=== PATIENT | female | born 1945 | race Caucasian/White ===

== ENCOUNTER → 2017-02-24 | Outpatient (CLI) | payer MEDICARE, MEDICAID ==
[~2017-02-24] MED LIST: AMBIEN10 MG PO; ASPIRIN325 MG PO; AUGMENTIN 875 M1 TA1 PO; Avapro300 MG PO; BENTYL10 MG PO; BENTYL20 MG PO; CALCIUM + D 5001 TAB PO; CARDIZEM CD240 MG PO; CIPRO250 MG PO; CLINDAMYCIN150 MG PO; CYCLOBENZAPRINE5 M3 PO; DIOVAN320 MG PO; ELIQUIS5 M1 PO; EVISTA60 MG PO; IMODIUM2 MG PO; LASIX40 MG PO; LEVAQUIN750 M1 PO; LOPID600 MG PO; MACROBID100 M1 PO; MOBIC7.5 MG PO; MULTI-VITAMINS1 TAB PO; PREVACID30 M1 PO; PRILOSEC20 M1 PO; SINGULAIR10 MG PO; SINGULAIR5 MG PO; TENORMIN100 MG PO; TESSALON PERLE100 MG PO; VITAMIN D2400 IU PO; VITAMIN D50000 IU PO; XANAX0.5 MG PO
== END ==
LOC: MRI 12:39
DX: M19.011 Primary osteoarthritis, right shoulder (principal); M75.81 Other shoulder lesions, right shoulder; M47.896 Other spondylosis, lumbar region; M51.27 Other intervertebral disc displacement, lumbosacral region; M48.07 Spinal stenosis, lumbosacral region; M25.562 Pain in left knee

== ENCOUNTER 2017-12-24 20:42 | Inpatient (IN) | payer MEDICARE, MEDICAID ==
[~2017-12-24] VITALS: Ht 157.5 cm; Wt 83.2 kg
--- NOTE | ~2017-12-24 | PR ---
[place], [place] PROGRESS NOTE NAME: FELIZ MCMULLEN I UNIT #: [id number] ROOM: 402 DOCTOR: YOGI HEWITT MD BIRTHDATE: [birth year] DOS: 12/26/2017 SUBJECTIVE: The patient was seen at her bedside today 12/26/2017 for followup of atrial fibrillation and diastolic heart failure. She presented to the hospital on this occasion with pedal edema. She was more dyspneic as well. In the hospital, she noted that her legs were more swollen, but were improving with diuresis. She had no chest pain. She did have an echocardiogram today, which showed normal left ventricular size with normal wall motion. There was mild concentric left ventricular hypertrophy. The left ventricular systolic function was normal with an ejection fraction of 60-65%. Diastole could not be fully assessed. The right ventricular size and function were normal. She had no apparent pulmonary hypertension and no significant abnormality of valve function. The left atrium was severely dilated consistent with probable left ventricular diastolic relaxation abnormalities. PHYSICAL EXAMINATION: VITAL SIGNS: Today, her pulse is 92 and irregularly irregular. Blood pressure is 95/65. She is afebrile. She weighs 83.6 kg and has a body mass index of 33.7. NECK: Supple. She did have jugular distention with mild hepatojugular reflux. Carotids are full. LUNGS: Respirations were unlabored. Her chest had decreased breath sounds at the bases, but otherwise clear. HEART: Had an irregularly irregular rhythm. There were no murmurs or gallops. ABDOMEN: Benign. EXTREMITIES: Showed 1+ edema bilaterally, but she does have "heavy legs." IMPRESSION: 1. Atrial fibrillation. 2. Chronic diastolic congestive heart failure with acute exacerbation. 3. Acute renal insufficiency, improving. 4. Essential hypertension. 5. Hyperlipidemia. PLAN: We will continue intravenous loop diuretics. We may need to discontinue angiotensin receptor blockers (losartan) if renal functions remain an issue. I would continue to control her heart rate with diltiazem orally and continue her on apixaban for stroke prophylaxis. We will continue to monitor her in the hospital with her other physicians. I thank the hospitalist physicians for asking our advice regarding her care. [place], [place] PROGRESS NOTE NAME: FELIZ MCMULLEN I UNIT #: [id number] ROOM: 402 DOCTOR: YOGI HEWITT MD BIRTHDATE: [birth year] YOGI HEWITT MD CM:[facility] 1949 18 YOGI HEWITT MD 12/26/17 2018 interface
[2017-12-24 20:43] VITALS: BP 130/78
[2017-12-24 21:15] VITALS: BP 121/78
[2017-12-24 21:22] LABS: BASO # 0.1 10*3/uL (0.0-0.1); EOS # 0.1 10*3/uL (0.0-0.4); EOS % 1.7 % (1.0-4.0); HEMOGLOBIN 15.3 g/dl (12.0-16.0); LYMPH # 2.9 10*3/uL (1.3-4.4); LYMPH % 37.9 % (27.0-41.0); MEAN CELL VOLUME 97.4 fl (81.0-99.0); MEAN CORPUSCULAR HGB 33.1 pg (27.0-31.0); MEAN PLATELET VOLUME 10.6 fl (9.6-12.3); MONO # 0.8 10*3/uL (0.1-1.0); MONO % 10.4 % (3.0-9.0); NEUT # 3.7 10*3/uL (2.3-7.9); NEUT % 48.2 % (47.0-73.0); PLATELET COUNT AUTOMATED 197 10*3/uL (130-400); RED BLOOD COUNT 4.62 10*6/uL (4.10-5.10); RED CELL DISTRI WIDTH 13.6 % (0-14.5); WHITE BLOOD COUNT 7.7 10*3/uL (4.8-10.8)
[2017-12-24 21:23] LABS: BILIRUBIN NEGATIVE (NEGATIVE); BLOOD NEGATIVE (NEGATIVE); CLARITY CLEAR (CLEAR); COLOR YELLOW (YELLOW); GLUCOSE NEGATIVE (NEGATIVE); KETONE NEGATIVE (NEGATIVE); LEUKO ESTERASE 1+ (NEGATIVE); NITRITE NEGATIVE (NEGATIVE); PH 5.5 (5.0-9.0); UROBILINOGEN 0.2 E.U./dl (0.2-1.0)
[2017-12-24 21:32] LABS: INTERNATIONAL NORM RATIO 1.1 (2.0-3.5)
[2017-12-24 21:32] LABS: BACTERIA 2+; RBC 0-2 rbc/hpf (0-2)
[2017-12-24 21:39] LABS: ALBUMIN 3.8 gm/dl (3.1-4.5); ALKALINE PHOSPHATASE 112 U/L (45-117); BUN 49 mg/dl (7-24); CHLORIDE 101 mmol/L (98-107); CREATININE 1.43 mg/dL (0.55-1.02); POTASSIUM 3.3 mmol/L (3.5-5.1); SGOT/AST 22 IU/L (3-35); SGPT/ALT 14 U/L (12-78); SODIUM 136 mmol/L (136-145); TOTAL PROTEIN 8.2 gm/dL (6.4-8.2)
[2017-12-24 21:42] LABS: TROPONIN I < 0.015 ng/ml (<0.045)
[2017-12-24 21:58] VITALS: BP 110/73
[2017-12-24 22:25] VITALS: BP 115/68
[2017-12-25] MEDS ORDERED: BUMETANIDE2 MG PO (01:44)
[2017-12-25 08:00] VITALS: BP 101/56
[2017-12-25 08:13] LABS: BASO # 0.1 10*3/uL (0.0-0.1); EOS # 0.1 10*3/uL (0.0-0.4); EOS % 1.8 % (1.0-4.0); HEMATOCRIT 45.2 % (37.0-47.0); HEMOGLOBIN 14.7 g/dl (12.0-16.0); LYMPH # 2.3 10*3/uL (1.3-4.4); MEAN CELL VOLUME 99.8 fl (81.0-99.0); MEAN CORPUSCULAR HGB 32.5 pg (27.0-31.0); MEAN CORPUSCULAR HGB CONC 32.5 g/dl (33.0-37.0); MEAN PLATELET VOLUME 10.9 fl (9.6-12.3); MONO # 0.8 10*3/uL (0.1-1.0); MONO % 10.6 % (3.0-9.0); NEUT % 55.1 % (47.0-73.0); PLATELET COUNT AUTOMATED 181 10*3/uL (130-400); RED BLOOD COUNT 4.53 10*6/uL (4.10-5.10); RED CELL DISTRI WIDTH 13.5 % (0-14.5); WHITE BLOOD COUNT 7.3 10*3/uL (4.8-10.8)
[2017-12-25 08:43] LABS: CREATININE 1.23 mg/dL (0.55-1.02); PHOSPHOROUS 2.5 mg/dL (2.5-4.9); POTASSIUM 3.5 mmol/L (3.5-5.1)
[2017-12-25 08:53] LABS: THYROID STIM HORMONE (HS) 1.51 uIU/ml (0.358-4.75)
[2017-12-25 12:00] VITALS: BP 135/83
[2017-12-25 16:00] VITALS: BP 100/58
[2017-12-25 20:00] VITALS: BP 90/58
[2017-12-26] VITALS: BP 96/54
[2017-12-26 07:27] LABS: BASO # 0.1 10*3/uL (0.0-0.1); BASO % 0.9 % (0.0-1.0); EOS # 0.2 10*3/uL (0.0-0.4); EOS % 2.6 % (1.0-4.0); HEMATOCRIT 38.8 % (37.0-47.0); HEMOGLOBIN 12.8 g/dl (12.0-16.0); LYMPH # 2.5 10*3/uL (1.3-4.4); LYMPH % 38.3 % (27.0-41.0); MEAN CELL VOLUME 98.2 fl (81.0-99.0); MEAN CORPUSCULAR HGB 32.4 pg (27.0-31.0); MEAN PLATELET VOLUME 10.8 fl (9.6-12.3); MONO # 0.7 10*3/uL (0.1-1.0); MONO % 10.6 % (3.0-9.0); NEUT % 47.3 % (47.0-73.0); PLATELET COUNT AUTOMATED 149 10*3/uL (130-400); RED BLOOD COUNT 3.95 10*6/uL (4.10-5.10); RED CELL DISTRI WIDTH 13.7 % (0-14.5); WHITE BLOOD COUNT 6.4 10*3/uL (4.8-10.8)
[2017-12-26 07:54] LABS: CREATININE 1.19 mg/dL (0.55-1.02); POTASSIUM 3.4 mmol/L (3.5-5.1)
[2017-12-26 08:00] VITALS: BP 105/63
[2017-12-26 12:00] VITALS: BP 107/68
[2017-12-26 16:00] VITALS: BP 95/65
[2017-12-26 20:00] VITALS: BP 98/62
[2017-12-27] VITALS: BP 97/61
[2017-12-27 06:33] LABS: CREATININE 1.15 mg/dL (0.55-1.02); POTASSIUM 3.8 mmol/L (3.5-5.1)
[2017-12-27 08:00] VITALS: BP 101/61
[2017-12-27 12:00] VITALS: BP 101/54
[2018-01-02] MEDS ORDERED: COREG12.5 M1 PO (18:10)
[2018-01-02] MEDS ORDERED: FISH OIL 1,0001 EAC1 PO (18:11)
[2018-01-02] MEDS ORDERED: TENORMIN100 MG PO (18:44)
== END 2017-12-27 16:00 | disposition home or self-care (01) | DRG 291 ==
LOC: ED 20:42 → 4E 21:56 → EDHOLD 21:56 → 4E 22:05
PROVIDERS: Family Medicine; Internal Medicine; Nurse Practitioner Family; Student in an Organized Health Care Education/Training Program
DX: I13.0 Hypertensive heart and chronic kidney disease with heart failure and stage 1 through stage 4 chronic kidney disease, or unspecified chronic kidney disease (principal); I50.33 Acute on chronic diastolic (congestive) heart failure; N17.0 Acute kidney failure with tubular necrosis; I48.2 Chronic atrial fibrillation; I08.3 Combined rheumatic disorders of mitral, aortic and tricuspid valves; N18.3 Chronic kidney disease, stage 3 (moderate); R73.9 Hyperglycemia, unspecified; E78.5 Hyperlipidemia, unspecified; E87.6 Hypokalemia; M19.90 Unspecified osteoarthritis, unspecified site; K57.90 Diverticulosis of intestine, part unspecified, without perforation or abscess without bleeding; K21.9 Gastro-esophageal reflux disease without esophagitis; F41.9 Anxiety disorder, unspecified; Z98.49 Cataract extraction status, unspecified eye; Z90.49 Acquired absence of other specified parts of digestive tract; Z90.710 Acquired absence of both cervix and uterus; Z82.49 Family history of ischemic heart disease and other diseases of the circulatory system; Z82.3 Family history of stroke; Z88.8 Allergy status to other drugs, medicaments and biological substances; Z91.041 Radiographic dye allergy status; Z79.899 Other long term (current) drug therapy

== ENCOUNTER 2018-01-16 13:12 | Emergency (ER) | payer MEDICARE, MEDICAID ==
[~2018-01-16] VITALS: Ht 162.5 cm; Wt 83.5 kg
[~2018-01-16 13:12] MED LIST changes: +ALPRAZOLAM0.5 M3 PO; +AVAPRO150 M1 PO; +BUMETANIDE1 MG PO; +BUMETANIDE2 MG PO; +COREG12.5 M1 PO; +FISH OIL 1,0001 EAC1 PO; +SINGULAIR10 M1 PO; +TOPROL XL50 M1 PO; +VITAMIN D50000 UNIT PO
[2018-01-16 13:37] LABS: BASO # 0.1 10*3/uL (0.0-0.1); BASO % 0.7 % (0.0-1.0); EOS # 0.1 10*3/uL (0.0-0.4); EOS % 1.6 % (1.0-4.0); HEMATOCRIT 38.4 % (37.0-47.0); HEMOGLOBIN 13.5 g/dl (12.0-16.0); LYMPH # 2.3 10*3/uL (1.3-4.4); LYMPH % 33.1 % (27.0-41.0); MEAN CELL VOLUME 95.3 fl (81.0-99.0); MEAN CORPUSCULAR HGB 33.5 pg (27.0-31.0); MEAN CORPUSCULAR HGB CONC 35.2 g/dl (33.0-37.0); MEAN PLATELET VOLUME 10.2 fl (9.6-12.3); MONO # 0.6 10*3/uL (0.1-1.0); MONO % 8.3 % (3.0-9.0); NEUT # 3.9 10*3/uL (2.3-7.9); NEUT % 55.4 % (47.0-73.0); PLATELET COUNT AUTOMATED 195 10*3/uL (130-400); RED BLOOD COUNT 4.03 10*6/uL (4.10-5.10); RED CELL DISTRI WIDTH 13.3 % (0-14.5)
[2018-01-16 13:45] LABS: ACT PARTIAL THROMBO TIME 35.1 SECONDS (20.8-31.5); INTERNATIONAL NORM RATIO 1.2 (2.0-3.5)
[2018-01-16 13:50] LABS: ALBUMIN 3.7 gm/dl (3.1-4.5); BUN 16 mg/dl (7-24); CHLORIDE 97 mmol/L (98-107); SGOT/AST 31 IU/L (3-35); SGPT/ALT 21 U/L (12-78); SODIUM 130 mmol/L (136-145)
[2018-01-16 13:54] LABS: ALKALINE PHOSPHATASE 108 U/L (45-117); TOTAL PROTEIN 7.4 gm/dL (6.4-8.2)
[2018-01-16 13:55] LABS: TROPONIN I < 0.015 ng/ml (<0.045)
[2018-01-16 15:15] VITALS: BP 112/60
[2018-01-16 15:32] LABS: BILIRUBIN NEGATIVE (NEGATIVE); BLOOD NEGATIVE (NEGATIVE); CLARITY CLEAR (CLEAR); COLOR YELLOW (YELLOW); GLUCOSE NEGATIVE (NEGATIVE); KETONE NEGATIVE (NEGATIVE); LEUKO ESTERASE NEGATIVE (NEGATIVE); NITRITE NEGATIVE (NEGATIVE); PH 5.5 (5.0-9.0); SPECIFIC GRAVITY <= 1.005 (1.005-1.030); UROBILINOGEN 0.2 E.U./dl (0.2-1.0)
[2018-01-16 15:38] LABS: BACTERIA 1+; EPITHELIAL CELLS 0-2; RBC 0-2 rbc/hpf (0-2); WBC 0-2 wbc/hpf (0-5)
== END 2018-01-16 15:34 | disposition home or self-care (01) ==
LOC: ED 13:12
PROVIDERS: Emergency Medicine
DX: E87.1 Hypo-osmolality and hyponatremia (principal); R60.0 Localized edema; I13.0 Hypertensive heart and chronic kidney disease with heart failure and stage 1 through stage 4 chronic kidney disease, or unspecified chronic kidney disease; N18.3 Chronic kidney disease, stage 3 (moderate); I50.9 Heart failure, unspecified; E78.5 Hyperlipidemia, unspecified; M19.90 Unspecified osteoarthritis, unspecified site; I48.91 Unspecified atrial fibrillation; Z91.041 Radiographic dye allergy status; Z88.8 Allergy status to other drugs, medicaments and biological substances; Z79.899 Other long term (current) drug therapy

== ENCOUNTER 2018-01-18 13:35 | Inpatient (IN) | payer MEDICARE, MEDICAID ==
[2018-01-18] VITALS (7 sets, daily range): BP systolic 99–152; BP diastolic 53–82
[~2018-01-18] VITALS: Ht 162.5 cm; Wt 80.8 kg
[2018-01-18 14:06] LABS: BASO # 0.1 10*3/uL (0.0-0.1); BASO % 0.6 % (0.0-1.0); EOS # 0.1 10*3/uL (0.0-0.4); EOS % 1.2 % (1.0-4.0); HEMATOCRIT 38.5 % (37.0-47.0); HEMOGLOBIN 12.9 g/dl (12.0-16.0); LYMPH # 2.3 10*3/uL (1.3-4.4); LYMPH % 27.8 % (27.0-41.0); MEAN CELL VOLUME 99.5 fl (81.0-99.0); MEAN CORPUSCULAR HGB 33.3 pg (27.0-31.0); MEAN CORPUSCULAR HGB CONC 33.5 g/dl (33.0-37.0); MEAN PLATELET VOLUME 10.2 fl (9.6-12.3); MONO # 0.7 10*3/uL (0.1-1.0); MONO % 9.1 % (3.0-9.0); NEUT % 60.8 % (47.0-73.0); PLATELET COUNT AUTOMATED 178 10*3/uL (130-400); RED BLOOD COUNT 3.87 10*6/uL (4.10-5.10); RED CELL DISTRI WIDTH 14.1 % (0-14.5); WHITE BLOOD COUNT 8.2 10*3/uL (4.8-10.8)
[2018-01-18 14:28] LABS: BUN 17 mg/dl (7-24); CHLORIDE 103 mmol/L (98-107); CREATININE 1.04 mg/dL (0.55-1.02); POTASSIUM 3.8 mmol/L (3.5-5.1); SODIUM 137 mmol/L (136-145); TROPONIN I < 0.015 ng/ml (<0.045)
[2018-01-18 15:32] LABS: BILIRUBIN NEGATIVE (NEGATIVE); BLOOD NEGATIVE (NEGATIVE); CLARITY CLEAR (CLEAR); COLOR YELLOW (YELLOW); GLUCOSE NEGATIVE (NEGATIVE); KETONE NEGATIVE (NEGATIVE); LEUKO ESTERASE NEGATIVE (NEGATIVE); NITRITE NEGATIVE (NEGATIVE); PH 5.5 (5.0-9.0); SPECIFIC GRAVITY <= 1.005 (1.005-1.030); UROBILINOGEN 0.2 E.U./dl (0.2-1.0)
[2018-01-18] MEDS ORDERED: BUMETANIDE2 MG PO (15:36)
[2018-01-18] MEDS ORDERED: TENORMIN100 MG PO ×2 (15:37→18:06)
[2018-01-18] MEDS ORDERED: CARTIA XT240 MG PO ×2 (15:38→18:07)
[2018-01-18] MEDS ORDERED: VITAMIN D32000 UNIT PO (15:39)
[2018-01-18 15:40] LABS: BACTERIA TRACE; WBC 0-2 wbc/hpf (0-5)
[2018-01-18] MEDS ORDERED: CARVEDILOL12.5 MG PO (15:40)
[2018-01-18] MEDS ORDERED: FISH OIL CONC1000 M1 PO (15:41)
[2018-01-19] VITALS: BP 100/53; BP 109/67
[2018-01-19 06:57] LABS: BASO # 0.1 10*3/uL (0.0-0.1); BASO % 0.8 % (0.0-1.0); EOS # 0.2 10*3/uL (0.0-0.4); EOS % 2.8 % (1.0-4.0); HEMATOCRIT 38.5 % (37.0-47.0); HEMOGLOBIN 12.9 g/dl (12.0-16.0); LYMPH # 1.7 10*3/uL (1.3-4.4); LYMPH % 27.7 % (27.0-41.0); MEAN CELL VOLUME 99.5 fl (81.0-99.0); MEAN CORPUSCULAR HGB 33.3 pg (27.0-31.0); MEAN CORPUSCULAR HGB CONC 33.5 g/dl (33.0-37.0); MEAN PLATELET VOLUME 10.6 fl (9.6-12.3); MONO # 0.7 10*3/uL (0.1-1.0); MONO % 10.5 % (3.0-9.0); NEUT # 3.6 10*3/uL (2.3-7.9); NEUT % 57.7 % (47.0-73.0); PLATELET COUNT AUTOMATED 146 10*3/uL (130-400); RED BLOOD COUNT 3.87 10*6/uL (4.10-5.10); RED CELL DISTRI WIDTH 14.3 % (0-14.5); WHITE BLOOD COUNT 6.2 10*3/uL (4.8-10.8)
[2018-01-19] MEDS ORDERED: LOPID600 M1 PO (07:54)
[2018-01-19] MEDS ORDERED: AVAPRO150 M1 PO (07:55)
[2018-01-19] MEDS ORDERED: BUMETANIDE1 MG PO (07:55)
[2018-01-19 07:59] LABS: ALBUMIN 3.3 gm/dl (3.1-4.5); BUN 14 mg/dl (7-24); CHLORIDE 103 mmol/L (98-107); CHOLESTEROL 127 mg/dL (<200); CREATININE 0.91 mg/dL (0.55-1.02); PHOSPHOROUS 3.3 mg/dL (2.5-4.9); POTASSIUM 3.3 mmol/L (3.5-5.1); SGOT/AST 26 IU/L (3-35); SGPT/ALT 17 U/L (12-78); SODIUM 140 mmol/L (136-145); TOTAL PROTEIN 6.8 gm/dL (6.4-8.2); TRIGLYCERIDES 87 mg/dl (<150); VLDL CHOLESTEROL 17 mg/dL (6-40)
[2018-01-19 08:00] VITALS: BP 115/68
[2018-01-19 08:04] LABS: VITAMIN D, 25-HYDROXY 54.7 ng/mL (30-100)
[2018-01-19 08:06] LABS: ALKALINE PHOSPHATASE 89 U/L (45-117); HDL CHOLESTEROL 42 mg/dl (40-60); LDL CHOLESTEROL 68 mg/dL (9-159)
[2018-01-19 12:00] VITALS: BP 91/53
[2018-01-19 16:00] VITALS: BP 104/59
[2018-01-19 20:00] VITALS: BP 104/58
[2018-01-20 00:36] VITALS: BP 108/58
[2018-01-20 06:55] LABS: BUN 15 mg/dl (7-24); CHLORIDE 104 mmol/L (98-107); CREATININE 0.99 mg/dL (0.55-1.02); POTASSIUM 3.9 mmol/L (3.5-5.1); SODIUM 140 mmol/L (136-145)
[2018-01-20 08:00] VITALS: BP 115/71
[2018-01-20] MEDS ORDERED: MUCINEX ER600 MG PO (11:03)
[2018-01-20] MEDS ORDERED: OMNICEF300 MG PO (11:03)
[2018-01-20] MEDS ORDERED: BUMETANIDE1 MG PO (11:07)
[2018-01-20 12:00] VITALS: BP 119/73
== END 2018-01-20 14:10 | disposition home or self-care (01) | DRG 291 ==
LOC: ED 13:35 → 4E 15:01 → EDHOLD 15:01 → 4E 15:08
PROVIDERS: Emergency Medicine; Internal Medicine
DX: I13.0 Hypertensive heart and chronic kidney disease with heart failure and stage 1 through stage 4 chronic kidney disease, or unspecified chronic kidney disease (principal); I50.31 Acute diastolic (congestive) heart failure; N17.9 Acute kidney failure, unspecified; I95.9 Hypotension, unspecified; L03.115 Cellulitis of right lower limb; D68.59 Other primary thrombophilia; I48.91 Unspecified atrial fibrillation; N18.3 Chronic kidney disease, stage 3 (moderate); I48.92 Unspecified atrial flutter; L03.116 Cellulitis of left lower limb; E87.6 Hypokalemia; K57.90 Diverticulosis of intestine, part unspecified, without perforation or abscess without bleeding; M19.90 Unspecified osteoarthritis, unspecified site; I87.2 Venous insufficiency (chronic) (peripheral); R79.89 Other specified abnormal findings of blood chemistry; E78.5 Hyperlipidemia, unspecified; Z87.01 Personal history of pneumonia (recurrent); Z90.49 Acquired absence of other specified parts of digestive tract; Z98.49 Cataract extraction status, unspecified eye; Z82.3 Family history of stroke; Z82.49 Family history of ischemic heart disease and other diseases of the circulatory system; Z88.8 Allergy status to other drugs, medicaments and biological substances; Z91.041 Radiographic dye allergy status; Z79.899 Other long term (current) drug therapy; Z87.440 Personal history of urinary (tract) infections

== ENCOUNTER 2018-06-27 14:44 | Emergency (ER) | payer OTHER ==
[~2018-06-27] VITALS: Wt 81.2 kg
[~2018-06-27 14:44] MED LIST changes: +CARTIA XT240 MG PO; +CARVEDILOL12.5 MG PO; +FISH OIL CONC1000 M1 PO; +LOPID600 M1 PO; +MUCINEX ER600 MG PO; +OMNICEF300 MG PO; +VITAMIN D32000 UNIT PO
[2018-06-27 14:50] VITALS: BP 118/68
[2018-06-27 15:34] LABS: BASO % 0.7 % (0.0-1.0); EOS # 0.2 10*3/uL (0.0-0.4); EOS % 2.7 % (1.0-4.0); HEMOGLOBIN 12.6 g/dl (12.0-16.0); LYMPH # 1.5 10*3/uL (1.3-4.4); LYMPH % 26.3 % (27.0-41.0); MEAN CELL VOLUME 97.4 fl (81.0-99.0); MEAN CORPUSCULAR HGB 32.3 pg (27.0-31.0); MEAN CORPUSCULAR HGB CONC 33.2 g/dl (33.0-37.0); MEAN PLATELET VOLUME 10.6 fl (9.6-12.3); MONO # 0.6 10*3/uL (0.1-1.0); MONO % 10.6 % (3.0-9.0); NEUT # 3.3 10*3/uL (2.3-7.9); NEUT % 59.5 % (47.0-73.0); PLATELET COUNT AUTOMATED 128 10*3/uL (130-400); RED CELL DISTRI WIDTH 14.2 % (0-14.5); WHITE BLOOD COUNT 5.6 10*3/uL (4.8-10.8)
[2018-06-27 15:44] LABS: ACT PARTIAL THROMBO TIME 33.9 SECONDS (20.8-31.5); INTERNATIONAL NORM RATIO 1.2 (2.0-3.5)
[2018-06-27 15:48] LABS: BILIRUBIN NEGATIVE (NEGATIVE); BLOOD TRACE-INTACT (NEGATIVE); CLARITY CLEAR (CLEAR); COLOR YELLOW (YELLOW); GLUCOSE NEGATIVE (NEGATIVE); KETONE NEGATIVE (NEGATIVE); LEUKO ESTERASE 2+ (NEGATIVE); NITRITE NEGATIVE (NEGATIVE); SPECIFIC GRAVITY <= 1.005 (1.005-1.030); UROBILINOGEN 0.2 E.U./dl (0.2-1.0)
[2018-06-27 15:51] LABS: ALBUMIN 3.5 gm/dl (3.1-4.5); CREATININE 1.36 mg/dL (0.55-1.02); POTASSIUM 3.7 mmol/L (3.5-5.1)
[2018-06-27 15:59] LABS: BACTERIA 1+; WBC 21-30 wbc/hpf (0-5)
[2018-06-27] MEDS ORDERED: MACROBID100 M1 PO (16:07)
[2018-06-27] MEDS ORDERED: ANUSOL-HC25 MG R (16:07)
== END 2018-06-27 16:28 | disposition home or self-care (01) ==
LOC: ED 14:44
PROVIDERS: Nurse Practitioner Family
DX: K64.4 Residual hemorrhoidal skin tags (principal); N39.0 Urinary tract infection, site not specified; I48.91 Unspecified atrial fibrillation; I13.0 Hypertensive heart and chronic kidney disease with heart failure and stage 1 through stage 4 chronic kidney disease, or unspecified chronic kidney disease; N18.3 Chronic kidney disease, stage 3 (moderate); I50.9 Heart failure, unspecified; Z91.041 Radiographic dye allergy status; Z88.8 Allergy status to other drugs, medicaments and biological substances; Z79.1 Long term (current) use of non-steroidal anti-inflammatories (NSAID); Z79.899 Other long term (current) drug therapy; Z90.710 Acquired absence of both cervix and uterus

== ENCOUNTER → 2019-01-23 | Outpatient (CLI) | payer MEDICARE ==
[~2019-01-23] MED LIST changes: +ANUSOL-HC25 MG R; +CALCIUM + D3 E1 EACH PO; +COMPLETE OMEGA1 EACH PO; +COREG6.25 MG PO; +DIGOXIN250 MCG PO; +DOCUSATE SODIU100 M2 PO; +HYDROCODONE-AC1 EAC1 PO; +LOPRESSOR25 MG PO; +MELOXICAM15 MG PO; +METOPROLOL TART50 M1 PO; +PROTONIX40 MG PO; +SENNO8.6 MG PO; +TYLENOL325 M1 PO; +VISTARIL25 MG PO; +VITAMIN D32000 UNI1 PO; +ZOFRAN4 MG PO
== END | disposition home or self-care (01) ==
LOC: WOUNDCARE 01:38
DX: S81.801A Unspecified open wound, right lower leg, initial encounter (principal); I13.0 Hypertensive heart and chronic kidney disease with heart failure and stage 1 through stage 4 chronic kidney disease, or unspecified chronic kidney disease; N18.3 Chronic kidney disease, stage 3 (moderate); I50.9 Heart failure, unspecified; I73.9 Peripheral vascular disease, unspecified; I48.91 Unspecified atrial fibrillation; M79.661 Pain in right lower leg; E78.5 Hyperlipidemia, unspecified; M19.90 Unspecified osteoarthritis, unspecified site; Z90.49 Acquired absence of other specified parts of digestive tract; Z90.710 Acquired absence of both cervix and uterus; Z98.49 Cataract extraction status, unspecified eye; Z79.01 Long term (current) use of anticoagulants; X58.XXXD Exposure to other specified factors, subsequent encounter

== ENCOUNTER → 2019-02-06 | Outpatient (CLI) | payer MEDICARE | END | disposition home or self-care (01) | LOC: WOUNDCARE 02:37 | DX: S80.11XD Contusion of right lower leg, subsequent encounter (principal); D62 Acute posthemorrhagic anemia; I48.91 Unspecified atrial fibrillation; I13.0 Hypertensive heart and chronic kidney disease with heart failure and stage 1 through stage 4 chronic kidney disease, or unspecified chronic kidney disease; N18.3 Chronic kidney disease, stage 3 (moderate); I50.9 Heart failure, unspecified; E78.5 Hyperlipidemia, unspecified; M19.90 Unspecified osteoarthritis, unspecified site; W20.8XXD Other cause of strike by thrown, projected or falling object, subsequent encounter ==

== ENCOUNTER → 2019-02-20 | Outpatient (CLI) | payer MEDICARE | END | disposition home or self-care (01) | LOC: WOUNDCARE 00:18 | DX: S80.11XD Contusion of right lower leg, subsequent encounter (principal); L92.9 Granulomatous disorder of the skin and subcutaneous tissue, unspecified; D62 Acute posthemorrhagic anemia; I48.91 Unspecified atrial fibrillation; I13.0 Hypertensive heart and chronic kidney disease with heart failure and stage 1 through stage 4 chronic kidney disease, or unspecified chronic kidney disease; N18.3 Chronic kidney disease, stage 3 (moderate); I50.9 Heart failure, unspecified; E78.5 Hyperlipidemia, unspecified; M19.90 Unspecified osteoarthritis, unspecified site; W20.8XXD Other cause of strike by thrown, projected or falling object, subsequent encounter ==

== ENCOUNTER → 2020-01-09 | Outpatient (CLI) | payer MEDICARE ==
[2020-01-09 14:34] LABS: CREATININE 1.25 mg/dL (0.55-1.02); POTASSIUM 4.5 mmol/L (3.5-5.1)
[2020-01-09 14:41] LABS: ALBUMIN 3.8 gm/dl (3.1-4.5)
[2020-01-09 14:44] LABS: BASO # 0.1 10*3/uL (0.0-0.1); BASO % 0.8 % (0.0-1.0); EOS # 0.2 10*3/uL (0.0-0.4); EOS % 2.9 % (1.0-4.0); HEMATOCRIT 44.8 % (37.0-47.0); LYMPH # 2.4 10*3/uL (1.3-4.4); LYMPH % 38.1 % (27.0-41.0); MEAN CELL VOLUME 100.7 fl (81.0-99.0); MEAN CORPUSCULAR HGB 32.4 pg (27.0-31.0); MEAN CORPUSCULAR HGB CONC 32.1 g/dl (33.0-37.0); MEAN PLATELET VOLUME 11.8 fl (9.6-12.3); MONO # 0.5 10*3/uL (0.1-1.0); MONO % 7.4 % (3.0-9.0); NEUT # 3.1 10*3/uL (2.3-7.9); NEUT % 50.3 % (47.0-73.0); PLATELET COUNT AUTOMATED 165 10*3/uL (130-400); RED BLOOD COUNT 4.45 10*6/uL (4.10-5.10); RED CELL DISTRI WIDTH 13.6 % (0-14.5); WHITE BLOOD COUNT 6.2 10*3/uL (4.8-10.8)
[2020-01-09 16:20] LABS: URINE CREATININE RANDOM 61.7 mg/dL
[2020-01-09 16:27] LABS: BILIRUBIN NEGATIVE (NEGATIVE); BLOOD 2+ (NEGATIVE); CLARITY CLEAR (CLEAR); COLOR YELLOW (YELLOW); GLUCOSE NEGATIVE (NEGATIVE); KETONE NEGATIVE (NEGATIVE); LEUKO ESTERASE 1+ (NEGATIVE); NITRITE NEGATIVE (NEGATIVE); SPECIFIC GRAVITY 1.025 (1.005-1.030); UROBILINOGEN 0.2 E.U./dl (0.2-1.0)
== END | disposition home or self-care (01) ==
LOC: LAB 12:25 → US 12:30
PROVIDERS: Internal Medicine Nephrology
DX: N17.9 Acute kidney failure, unspecified (principal)

== ENCOUNTER 2020-02-04 14:12 | Inpatient (IN) | payer MEDICARE ==
[~2020-02-04] VITALS: Ht 160 cm; Wt 62.6 kg
[2020-02-04 14:43] VITALS: BP 126/58
[2020-02-04 16:03] LABS: BASO # 0.1 10*3/uL (0.0-0.1); BASO % 0.8 % (0.0-1.0); EOS # 0.2 10*3/uL (0.0-0.4); EOS % 2.3 % (1.0-4.0); HEMATOCRIT 41.9 % (37.0-47.0); LYMPH # 1.9 10*3/uL (1.3-4.4); LYMPH % 28.7 % (27.0-41.0); MEAN CELL VOLUME 100.5 fl (81.0-99.0); MEAN CORPUSCULAR HGB 32.9 pg (27.0-31.0); MEAN CORPUSCULAR HGB CONC 32.7 g/dl (33.0-37.0); MEAN PLATELET VOLUME 10.8 fl (9.6-12.3); MONO # 0.5 10*3/uL (0.1-1.0); MONO % 8.1 % (3.0-9.0); NEUT # 3.9 10*3/uL (2.3-7.9); NEUT % 59.8 % (47.0-73.0); PLATELET COUNT AUTOMATED 146 10*3/uL (130-400); RED BLOOD COUNT 4.17 10*6/uL (4.10-5.10); RED CELL DISTRI WIDTH 14.2 % (0-14.5); WHITE BLOOD COUNT 6.6 10*3/uL (4.8-10.8)
[2020-02-04 16:14] LABS: INTERNATIONAL NORM RATIO 1.2 (2.0-3.5)
[2020-02-04 16:20] VITALS: BP 129/75
[2020-02-04 16:20] LABS: ALBUMIN 3.5 gm/dl (3.1-4.5); ALKALINE PHOSPHATASE 98 U/L (45-117); BUN 19 mg/dl (7-24); CHLORIDE 109 mmol/L (98-107); CREATININE 0.89 mg/dL (0.55-1.02); LIPASE 174 U/L (73-393); POTASSIUM 4.5 mmol/L (3.5-5.1); SGOT/AST 20 IU/L (3-35); SGPT/ALT 14 U/L (12-78); SODIUM 139 mmol/L (136-145); TOTAL PROTEIN 7.6 gm/dL (6.4-8.2); TROPONIN I < 0.015 ng/ml (<0.045)
--- NOTE | 2020-02-04 16:20 | NUR ---
A 74, admitted to , under the services of JEIMY Montero DO with a diagnosis of CELLULITIS OF RIGHT LOWER EXTREMITY Chief complaint is LEG PAIN. Patient arrived via CART from ER. Monitor applied. Initial assessment completed. Vital signs taken and recorded. JEIMY MONTERO DO notified of admission to the unit. Orders received. See assessment for past medical history, medications and allergies. Patient and/or family oriented to unit. [facility] visitation policy reviewed. Clothing/patient valuable form completed. HELEN WILLIS
[2020-02-04 16:54] LABS: DIGOXIN 2.26 ng/ml (0.8-2.0)
--- NOTE | 2020-02-04 17:05 | NUR ---
CALLED [facility] FOR MED LIST
--- NOTE | 2020-02-04 17:23 | NUR ---
PT LEAVING THE FLOOR AT THIS TIME FOR ULTRA SOUND
[2020-02-04] MEDS ORDERED: FISH OIL 1,0001 EAC4 PO (17:30)
[2020-02-04] MEDS ORDERED: CEROVITE ADVAN1 EACH PO (17:32)
[2020-02-04] MEDS ORDERED: CLARITIN10 MG PO (17:39)
--- NOTE | 2020-02-04 17:42 | NUR ---
DR JOSHUA NOTIFIED OF UPDATED MED LIST
--- NOTE | 2020-02-04 17:42 | NUR ---
PT BACK ON FLOOR
--- NOTE | 2020-02-04 19:35 | NUR ---
PATIENT ASSESSMENT COMPLETED AT THIS TIME WITHOUT INCIDENT. PATIENT A&O X3, DENIES ANY CHEST PAIN/PRESSURE OR SHORTNESS OF BREATH AT THIS TIME. DENIES ANY OTHER NEEDS AT THIS TIME. CALL LIGHT WITHIN REACH WILL CONTINUE TO MONITOR.
[2020-02-04 20:00] VITALS: BP 122/57
--- NOTE | 2020-02-04 23:12 | NUR ---
PRN TYLENOL GIVEN AT THIS TIME FOR GENERALIZED ARTHRITIS PAIN PER PATIENT "I TAKE 2 TYLENOL EVERY NIGHT BEFORE I GO TO BED FOR MY ARTHRITIS PAIN". A&O X3, CALL LIGHT WITHIN REACH, WILL CONTINUE TO MONITOR.
[2020-02-05] VITALS: BP 100/60
--- NOTE | 2020-02-05 00:10 | NUR ---
PATIENT RESTING IN BED IN A POSITION OF COMFORT AT THIS TIME WITH EYES CLOSED, NO SIGNS OR SYMPTOMS OF PAIN OR DISTRESS NOTED AT THIS TIME. TYLENOL FOR PAIN APPEARS TO BE EFFECTIVE. WILL CONTINUE TO MONITOR.
--- NOTE | 2020-02-05 00:52 | NUR ---
PRN NORCO ADMINISTERED AT THIS TIME FOR PATIENT COMPLAINT OF 7/10 PAIN IN HER RIGHT NECK AND SHOULDER. A&O X3, CALL LIGHT WITHIN REACH WILL CONTINUE TO MONITOR.
--- NOTE | 2020-02-05 01:40 | NUR ---
PATIENT RESTING IN BED IN A POSITION OF COMFORT AT THIS TIME WITH EYES CLOSED, RESPIRATIONS EASY AND NON-LABORED AT THIS TIME. NO SIGNS OR SYMPTOMS OF PAIN NOTED AT THIS TIME, PRN NORCO APPEARS EFFECTIVE AT THIS TIME. CALL LIGHT WITHIN REACH, WILL CONTINUE TO MONITOR.
--- NOTE | 2020-02-05 02:21 | NUR ---
24 HOUR CHART CHECK COMPLETE
--- NOTE | 2020-02-05 05:10 | NUR ---
PATIENT GIVEN AM MEDICATIONS WITHOUT INCIDENT. WOUND CARE IN TO SEE PATIENT MEASURE AND EVALUATE HER RIGHT LEG WOUND, DRESSING REAPPLIED AT THIS TIME, PATIENT TOLERATED WITHOUT INCIDENT, CALL LIGHT WITHIN REACH. WILL CONTINUE TO MONITOR.
--- NOTE | 2020-02-05 05:18 | NUR ---
FELIZ MCMULLEN I [id number] Please refer to the physician's history and physical for past medical history, comorbid conditions, and allergies. Diagnosis: CELLULITIS OF RIGHT LOWER EXTREMITY Daniele Score: 21,LOW OR NO RISK WOUND DESCRIPTIONS: Wound Number: 1 Location of the wound: Right lower extremity Type of wound: traumatic Thickness: Full Size: 13.5cm x 15.0cm x <0.1cm Tunneling: none Undermining: none Sinus Tract: none Presence of Exudate: Serousanguineous Amount: Moderate Color: Red, Yellow Odor: None Periwound Skin Appearance: Macerated Wound edges: approximated Pain (associated with wound): tender at time of assessment How does patient state this happened? pt stated this started about 1 year ago when she dropped a jar of cranberry juice on it and it turned into a blood blister and open up she stated she followed with Dr. Murphy up until he then [facility] who is off on maternity leave she stated Harley Ferrara saw he yesterday in the wound care center and sent her in the ER to be evaluated. Surface the patient is resting on: Isoflex SKIN PREVENTION RECOMMENDATION: 1. Pressure redistribution support surface as appropriate 2. Elevate heels 3. Remove boots/TEDS every shift and reapply 4. Head of bed 30 degrees as tolerated 5. Assess nutrition and hydration 6. Manage moisture 7. Avoid the use of containment devices while in bed 8. Use absorptive products on surfaces limit layers of linens on bed 9. Turn and reposition every 1-2 hours in bed and every 1 hour in chair as tolerated 10. Weight shifts every 15 minutes while up in chair 11. Offloading with pillows or device to keep heels elevated off bed 12. Monitor skin at least every shift 13. Inspect under medical devices twice a day WOUND TREATMENT RECOMMENDATIONS: Consult podaitry while for area to right lower extremity. Patient states she will follow up in the wound care center and follow up appointment scheduled for 02/18/20 at 1:30pm. Full thickness guidelines: Cleanse right lower extremity with nss and apply sureprep around the wound therahoney sheet to wound bed cover with abd pad and lightly wrap with rolled gauze daily every 2 days and prn for soiling. Heel raiser pro boots to bilateral feet while in bed.
[2020-02-05 06:15] LABS: BASO # 0.1 10*3/uL (0.0-0.1); BASO % 0.9 % (0.0-1.0); EOS # 0.2 10*3/uL (0.0-0.4); EOS % 3.1 % (1.0-4.0); HEMATOCRIT 39.5 % (37.0-47.0); LYMPH # 2.3 10*3/uL (1.3-4.4); LYMPH % 33.5 % (27.0-41.0); MEAN CORPUSCULAR HGB 32.9 pg (27.0-31.0); MEAN CORPUSCULAR HGB CONC 32.9 g/dl (33.0-37.0); MEAN PLATELET VOLUME 11.3 fl (9.6-12.3); MONO # 0.6 10*3/uL (0.1-1.0); MONO % 8.3 % (3.0-9.0); NEUT # 3.7 10*3/uL (2.3-7.9); NEUT % 53.9 % (47.0-73.0); PLATELET COUNT AUTOMATED 135 10*3/uL (130-400); RED BLOOD COUNT 3.95 10*6/uL (4.10-5.10); WHITE BLOOD COUNT 6.8 10*3/uL (4.8-10.8)
[2020-02-05 06:23] LABS: ALBUMIN 3.2 gm/dl (3.1-4.5); BUN 17 mg/dl (7-24); CHLORIDE 109 mmol/L (98-107); POTASSIUM 4.1 mmol/L (3.5-5.1); SODIUM 140 mmol/L (136-145)
[2020-02-05 06:39] LABS: ALKALINE PHOSPHATASE 85 U/L (45-117); CREATININE 0.91 mg/dL (0.55-1.02); SGOT/AST 17 IU/L (3-35); SGPT/ALT 14 U/L (12-78); TOTAL PROTEIN 6.8 gm/dL (6.4-8.2)
[2020-02-05 07:23] LABS: DIGOXIN 1.66 ng/ml (0.8-2.0)
[2020-02-05 08:00] VITALS: BP 126/67
--- NOTE | 2020-02-05 08:40 | NUR ---
PT REQUESTED AND WAS MEDICATD WITH NORCO FOR C/O LEFT LEG PAIN. CALL LIGHT IN REACH. WILL MONITOR
--- NOTE | 2020-02-05 08:46 | NUR ---
Dr. Reis notified of wound care recommendations
--- NOTE | 2020-02-05 09:09 | NUR ---
PODITARY CONSULT CALLED TO DR GEORGES.
--- NOTE | 2020-02-05 09:35 | NUR ---
MEDICATION EFFECTIVE PER PT. WILL MONITOR
[2020-02-05 12:00] VITALS: BP 116/68
--- NOTE | 2020-02-05 12:03 | NUR ---
Casing Crew in to talk to patient. Patient states lives at HOME with ALONE. There are OUTSIDE steps in the home. Physician: JOVITA TAVERAS [facility]: [facility] Home health services: [facility], DOES NOT WANT ANY OTHER SERVICES Patient's level of ADLs: INDEPENDENT Patient has working utilities: YES DME: NONE Follow-up physician's appointment after d/c: WILL BE MADE BY HOSPITALIST NURSE DIRECTOR ON DISCHARGE Does patient want to access PORTAL?: NO Discharge plan PT LIVES AT HOME ALONE AND IS INDEPENDENT IN HER CARE. DENIES SHE WILL HAVE ANY NEEDS ON DISCHARGE. STATES SHE HAS [facility] 2 TIMES A WEEK TO HELP HER AT HOME. REFUSES HOME HEALTH. PLAN IS TO RETURN HOME WHEN MEDICALLY STABLE. WILL CONTINUE TO FOLLOW. STATES DAUGHTER WILL TAKE HER HOOME.. DEB ARAUJO
--- NOTE | 2020-02-05 12:07 | NUR ---
DR SAGE IN TO SEE PT, ASHLEE APPLIED BY HER.
[2020-02-05 16:00] VITALS: BP 98/57
[2020-02-05 20:00] VITALS: BP 112/64
--- NOTE | 2020-02-05 20:10 | NUR ---
PATIENT ASSESSMENT COMPLETED AT THIS TIME WITHOUT INCIDENT, PATIENT DENIES ANY CHEST PAIN, SHORTNESS OF BREATH, OR OTHER DISTRESS AT THIS TIME. IV VANCOMYCIN INFUSING INTO RIGHT ARM IV WITHOUT INCIDENT. PATIENT A&O X3 AT THIS TIME. CALL LIGHT WITHIN REACH, WILL CONTINUE TO MONITOR.
--- NOTE | 2020-02-05 21:10 | NUR ---
PATIENT GIVEN ORDERED MEDICATIONS A THIS TIME WITHOUT INCIDENT. IV ZOSYN INFUSING INTO RIGHT ARM IV AT THIS TIME WITHOUT INCIDENT. CALL LIGHT WITHIN REACH WILL CONTINUE TO MONITOR.
--- NOTE | 2020-02-05 22:37 | NUR ---
24 HOUR CHART CHECK COMPLETE
--- NOTE | 2020-02-05 22:56 | NUR ---
PRN NORCO GIVEN AT THIS TIME FOR PATIENT COMPLAINT OF 6/10 PAIN IN RIGHT SHOULDER AND NECK. A&O X3 AT THIS TIME, CALL LIGHT WITHIN REACH WILL CONTINUE TO MONITOR.
--- NOTE | 2020-02-05 23:28 | NUR ---
PRN VISTARIL GIVEN AT THIS TIME FOR ANXIETY RELATED TO NOT BEING ABLE TO SLEEP. PATIENT A&O X3 AT THIS TIME, CALL LIGHT WITHIN REACH WILL CONTINUE TO MONITOR.
--- NOTE | 2020-02-05 23:50 | NUR ---
PATIENT RESTING IN BED IN A POSITION OF COMFORT AT THIS TIME WITH EYES CLOSED, RESPIRATIONS EASY AND NON-LABORED, CALL LIGHT WITHIN REACH. PRN NORCO AND VISTARIL APPEAR EFFECTIVE AT THIS TIME. WILL CONTINUE TO MONITOR.
[2020-02-06] VITALS: BP 101/45
--- NOTE | 2020-02-06 00:10 | NUR ---
PATIENT REMAINS RESTING IN BED IN A POSITION OF COMFORT WITH HER EYES CLOSED, RESPIRATIONS REMAIN REGULAR AND NON-LABORED. PRN VISTARIL APPEARS TO BE EFFECTIVE AT THIS TIME. CALL LIGHT WITHIN REACH, WILL CONTINUE TO MONITOR.
--- NOTE | 2020-02-06 03:05 | NUR ---
PATIENT RESTING IN BED IN A POSITION OF COMFORT WITH EYES CLOSED, RESPIRATIONS EASY AND NON-LABORED AT THIS TIME. CALL LIGHT WITHIN REACH, WILL CONTINUE TO MONITOR.
[2020-02-06 06:08] LABS: BUN 17 mg/dl (7-24); CHLORIDE 114 mmol/L (98-107); CREATININE 0.93 mg/dL (0.55-1.02); POTASSIUM 3.9 mmol/L (3.5-5.1); SODIUM 142 mmol/L (136-145)
[2020-02-06 06:20] LABS: BASO # 0.1 10*3/uL (0.0-0.1); BASO % 0.9 % (0.0-1.0); DIGOXIN 1.69 ng/ml (0.8-2.0); EOS # 0.2 10*3/uL (0.0-0.4); EOS % 3.7 % (1.0-4.0); HEMATOCRIT 37.1 % (37.0-47.0); LYMPH % 36.2 % (27.0-41.0); MEAN CORPUSCULAR HGB 32.9 pg (27.0-31.0); MEAN CORPUSCULAR HGB CONC 32.9 g/dl (33.0-37.0); MEAN PLATELET VOLUME 11.3 fl (9.6-12.3); MONO # 0.6 10*3/uL (0.1-1.0); MONO % 10.1 % (3.0-9.0); NEUT # 2.6 10*3/uL (2.3-7.9); NEUT % 48.7 % (47.0-73.0); PLATELET COUNT AUTOMATED 118 10*3/uL (130-400); RED BLOOD COUNT 3.71 10*6/uL (4.10-5.10); RED CELL DISTRI WIDTH 14.2 % (0-14.5); WHITE BLOOD COUNT 5.4 10*3/uL (4.8-10.8)
[2020-02-06 08:00] VITALS: BP 104/59
--- NOTE | 2020-02-06 08:30 | NUR ---
Patient resting quietly with no c/o discomfort. Respirations easy and regular. drsg dry and intact to left leg. Vital signs stable. No overt distress. CARLOS PAREDES R
--- NOTE | 2020-02-06 08:43 | NUR ---
Pt requested and was medicated with Tylenol for c/o chronic shoulder pain. Call light in reach. will monitor
--- NOTE | 2020-02-06 09:30 | NUR ---
MEDICATION EFFECTIVE PER PT. CALL LIGHT IN REACH. WILL MONITOR
--- NOTE | 2020-02-06 11:48 | NUR ---
PT CONTINUES TO DENY NEEDS ON DISCHARGE. WILL CONTINUE TO FOLLOW.
[2020-02-06 12:00] VITALS: BP 100/52
--- NOTE | 2020-02-06 14:00 | NUR ---
PODITARY IN TO SEE PT, AND DRSG WAS CHANGED BY PODIARY RESIDENT.
--- NOTE | 2020-02-06 14:03 | NUR ---
Nutritional Support Services Note: Appetite is good for meals. She is eating 100% of all meals. Regular diet as ordered. Ht.5'3 Wt.222# Cellulitis of right lower leg noted. Encouraged continued good intake of meals. No other nutrition intervention needed at this time. Will follow if needed. Dulce Vázquez Rdn Ld
--- NOTE | 2020-02-06 14:34 | NUR ---
PT REQUESTED AND WAS MEDICATED WITH NORCO FOR C/O BILAERAL SHOULDER PAIN. CALL LIGHT IN REACH. WILL MONITOR
--- NOTE | 2020-02-06 15:30 | NUR ---
MEDICATION EFFECTIVE PER PT. CALL LIGHT IN REACH. WILL MONITOR
[2020-02-06 16:00] VITALS: BP 120/56
[2020-02-06 20:00] VITALS: BP 124/63
--- NOTE | 2020-02-06 22:53 | NUR ---
OLD IV SITE PAINFUL AND RED. NEW 22G INSERTED INTO RIGHT ARM ON 3RD ATTEMPT WITHOUT DIFFICULTY. GOOD BLOOD RETURN. PATIENT TOLERATED WELL. WILL CONTINUE TO MONITOR. CALL LIGHT IN REACH.
--- NOTE | 2020-02-06 23:10 | NUR ---
PATIENT MEDICATED WITH TYLENOL FOR COMPLAINTS OF SHOULDER PAIN AND VISTARIL FOR COMPLAINTS OF ANXIETY D/T UNABLE TO SLEEP. WILL MONITOR FOR EFFECTIVENESS. CALL LIGHT IN REACH.
[2020-02-07] VITALS: BP 120/68
[2020-02-07 06:23] LABS: BASO # 0.1 10*3/uL (0.0-0.1); BASO % 1.2 % (0.0-1.0); EOS # 0.2 10*3/uL (0.0-0.4); EOS % 4.9 % (1.0-4.0); HEMATOCRIT 37.7 % (37.0-47.0); LYMPH # 1.7 10*3/uL (1.3-4.4); MEAN CELL VOLUME 98.7 fl (81.0-99.0); MEAN CORPUSCULAR HGB 32.2 pg (27.0-31.0); MEAN CORPUSCULAR HGB CONC 32.6 g/dl (33.0-37.0); MEAN PLATELET VOLUME 11.2 fl (9.6-12.3); MONO # 0.5 10*3/uL (0.1-1.0); MONO % 10.2 % (3.0-9.0); NEUT # 2.4 10*3/uL (2.3-7.9); NEUT % 48.3 % (47.0-73.0); PLATELET COUNT AUTOMATED 128 10*3/uL (130-400); RED BLOOD COUNT 3.82 10*6/uL (4.10-5.10); RED CELL DISTRI WIDTH 14.5 % (0-14.5); WHITE BLOOD COUNT 4.9 10*3/uL (4.8-10.8)
[2020-02-07 06:53] LABS: BUN 14 mg/dl (7-24); CHLORIDE 115 mmol/L (98-107); CREATININE 0.86 mg/dL (0.55-1.02); SODIUM 141 mmol/L (136-145)
[2020-02-07 07:05] LABS: DIGOXIN 1.54 ng/ml (0.8-2.0)
[2020-02-07 08:00] VITALS: BP 116/62
--- NOTE | 2020-02-07 08:30 | NUR ---
Termite Exterminator Helper in to see patient. No new needs or request at this time. She denies any home needs. When medically stable she will be discharged to home with the resumption of her [facility] which she has twice a week on Tuesday and for 3 hours each day.
[2020-02-07] MEDS ORDERED: SEPTDS PO ×2 (09:53→09:54)
[2020-02-07 12:00] VITALS: BP 121/66
--- NOTE | 2020-02-07 12:54 | NUR ---
Discharge instructions reviewed with patient/family. Patient receptive and verbalizes understanding. Follow-up care arranged. Written instructions given to patient/family. SALLIE MATA
== END 2020-02-07 12:54 | disposition home or self-care (01) | DRG 603 ==
LOC: ED 14:12 → EDHOLD 15:38 → 5E 15:38
PROVIDERS: Emergency Medicine; Internal Medicine; ADMIT Family Medicine
DX: L03.115 Cellulitis of right lower limb (principal); I50.32 Chronic diastolic (congestive) heart failure; I48.21 Permanent atrial fibrillation; I13.0 Hypertensive heart and chronic kidney disease with heart failure and stage 1 through stage 4 chronic kidney disease, or unspecified chronic kidney disease; L97.919 Non-pressure chronic ulcer of unspecified part of right lower leg with unspecified severity; D75.89 Other specified diseases of blood and blood-forming organs; E87.8 Other disorders of electrolyte and fluid balance, not elsewhere classified; E83.41 Hypermagnesemia; E78.5 Hyperlipidemia, unspecified; K21.9 Gastro-esophageal reflux disease without esophagitis; F41.9 Anxiety disorder, unspecified; I73.9 Peripheral vascular disease, unspecified; B95.61 Methicillin susceptible Staphylococcus aureus infection as the cause of diseases classified elsewhere; N18.3 Chronic kidney disease, stage 3 (moderate); M19.90 Unspecified osteoarthritis, unspecified site; K57.90 Diverticulosis of intestine, part unspecified, without perforation or abscess without bleeding; Z82.49 Family history of ischemic heart disease and other diseases of the circulatory system; Z82.3 Family history of stroke; Z88.8 Allergy status to other drugs, medicaments and biological substances; Z91.041 Radiographic dye allergy status; Z79.899 Other long term (current) drug therapy; Z79.01 Long term (current) use of anticoagulants; Z90.710 Acquired absence of both cervix and uterus; Z90.49 Acquired absence of other specified parts of digestive tract; Z98.49 Cataract extraction status, unspecified eye

== ENCOUNTER → 2020-02-29 | Outpatient (CLI) | payer MEDICARE ==
[~2020-02-29] MED LIST changes: +CEROVITE ADVAN1 EACH PO; +CLARITIN10 MG PO; +FISH OIL 1,0001 EAC4 PO; +SEPTDS PO
== END | disposition home or self-care (01) ==
LOC: RAD 13:39
DX: Z78.0 Asymptomatic menopausal state (principal)

== ENCOUNTER → 2020-03-14 | Outpatient (CLI) | payer MEDICARE ==
[~2020-03-14] MED LIST changes: +DOXYCYCLINE100 M3 PO
[2020-03-14 15:44] LABS: BUN 14 mg/dl (7-24); CHLORIDE 107 mmol/L (98-107); SODIUM 139 mmol/L (136-145)
== END | disposition home or self-care (01) ==
LOC: LAB 14:50
PROVIDERS: Internal Medicine Cardiovascular Disease
DX: I50.9 Heart failure, unspecified (principal)

== ENCOUNTER 2020-03-15 10:30 | Emergency (ER) | payer MEDICARE ==
[~2020-03-15] VITALS: Ht 170.1 cm; Wt 72.6 kg
[~2020-03-15 10:30] MED LIST changes: -DOXYCYCLINE100 M3 PO
[2020-03-15 11:15] LABS: BASO # 0.1 10*3/uL (0.0-0.1); BASO % 1.1 % (0.0-1.0); EOS # 0.3 10*3/uL (0.0-0.4); EOS % 5.8 % (1.0-4.0); HEMATOCRIT 43.1 % (37.0-47.0); LYMPH # 1.8 10*3/uL (1.3-4.4); LYMPH % 32.1 % (27.0-41.0); MEAN CELL VOLUME 100.2 fl (81.0-99.0); MEAN CORPUSCULAR HGB 32.3 pg (27.0-31.0); MEAN CORPUSCULAR HGB CONC 32.3 g/dl (33.0-37.0); MEAN PLATELET VOLUME 10.9 fl (9.6-12.3); MONO # 0.5 10*3/uL (0.1-1.0); MONO % 8.2 % (3.0-9.0); NEUT # 2.9 10*3/uL (2.3-7.9); NEUT % 52.4 % (47.0-73.0); PLATELET COUNT AUTOMATED 151 10*3/uL (130-400); RED CELL DISTRI WIDTH 14.6 % (0-14.5); WHITE BLOOD COUNT 5.5 10*3/uL (4.8-10.8)
[2020-03-15 11:30] LABS: ALBUMIN 3.5 gm/dl (3.1-4.5); ALKALINE PHOSPHATASE 118 U/L (45-117); BUN 16 mg/dl (7-24); CHLORIDE 106 mmol/L (98-107); POTASSIUM 3.9 mmol/L (3.5-5.1); SGOT/AST 32 IU/L (3-35); SGPT/ALT 33 U/L (12-78); SODIUM 140 mmol/L (136-145); TOTAL PROTEIN 7.9 gm/dL (6.4-8.2)
[2020-03-15] MEDS ORDERED: DOXYCYCLINE100 M3 PO (11:44)
[2020-03-15 12:10] VITALS: BP 124/61
== END 2020-03-15 12:28 | disposition home or self-care (01) ==
LOC: ED 10:30
PROVIDERS: Nurse Practitioner Family
DX: S81.801D Unspecified open wound, right lower leg, subsequent encounter (principal); Z48.00 Encounter for change or removal of nonsurgical wound dressing; I48.91 Unspecified atrial fibrillation; I13.0 Hypertensive heart and chronic kidney disease with heart failure and stage 1 through stage 4 chronic kidney disease, or unspecified chronic kidney disease; I50.9 Heart failure, unspecified; N18.9 Chronic kidney disease, unspecified; J45.909 Unspecified asthma, uncomplicated; M19.90 Unspecified osteoarthritis, unspecified site; F41.9 Anxiety disorder, unspecified; K21.9 Gastro-esophageal reflux disease without esophagitis; Z91.041 Radiographic dye allergy status; Z88.8 Allergy status to other drugs, medicaments and biological substances; Z79.899 Other long term (current) drug therapy; X58.XXXD Exposure to other specified factors, subsequent encounter

== ENCOUNTER → 2020-05-09 | Outpatient (CLI) | payer MEDICARE ==
[~2020-05-09] MED LIST changes: +DOXYCYCLINE100 M3 PO
[2020-05-09 15:12] LABS: BASO # 0.1 10*3/uL (0.0-0.1); EOS # 0.2 10*3/uL (0.0-0.4); EOS % 3.2 % (1.0-4.0); HEMATOCRIT 40.5 % (37.0-47.0); LYMPH # 2.4 10*3/uL (1.3-4.4); LYMPH % 37.8 % (27.0-41.0); MEAN CELL VOLUME 99.8 fl (81.0-99.0); MEAN CORPUSCULAR HGB 31.5 pg (27.0-31.0); MEAN CORPUSCULAR HGB CONC 31.6 g/dl (33.0-37.0); MEAN PLATELET VOLUME 10.9 fl (9.6-12.3); MONO # 0.5 10*3/uL (0.1-1.0); MONO % 7.6 % (3.0-9.0); NEUT # 3.1 10*3/uL (2.3-7.9); NEUT % 50.1 % (47.0-73.0); PLATELET COUNT AUTOMATED 178 10*3/uL (130-400); RED BLOOD COUNT 4.06 10*6/uL (4.10-5.10); RED CELL DISTRI WIDTH 13.3 % (0-14.5); WHITE BLOOD COUNT 6.2 10*3/uL (4.8-10.8)
[2020-05-09 15:31] LABS: ALBUMIN 3.8 gm/dl (3.1-4.5); CREATININE 2.37 mg/dL (0.55-1.02); POTASSIUM 5.2 mmol/L (3.5-5.1)
[2020-05-09 15:38] LABS: TOTAL PROTEIN 8.5 gm/dL (6.4-8.2)
== END | disposition home or self-care (01) ==
LOC: LAB 14:21
PROVIDERS: ATTEND Nurse Practitioner Primary Care
DX: I10 Essential (primary) hypertension (principal); E55.9 Vitamin D deficiency, unspecified

== ENCOUNTER → 2020-05-26 | Outpatient (CLI) | payer MEDICARE | END | disposition home or self-care (01) | LOC: US 14:20 | PROVIDERS: ATTEND Nurse Practitioner Primary Care | DX: T14.8XXA Other injury of unspecified body region, initial encounter (principal); M79.89 Other specified soft tissue disorders; X58.XXXA Exposure to other specified factors, initial encounter; Y93.89 Activity, other specified; Y92.89 Other specified places as the place of occurrence of the external cause; Y99.8 Other external cause status ==

== ENCOUNTER → 2022-09-02 | Outpatient (CLI) | payer MEDICARE | END | disposition home or self-care (01) | LOC: US 16:00 | PROVIDERS: ATTEND Podiatrist | DX: M79.605 Pain in left leg (principal); R60.9 Edema, unspecified ==

== ENCOUNTER → 2022-10-09 | Outpatient (CLI) | payer MEDICARE, OTHER ==
[~2022-10-09] MED LIST changes: +VANCOMYCIN HCL125 MG PO
== END | disposition home or self-care (01) ==
LOC: LAB 15:46
PROVIDERS: ATTEND Physical Therapist
DX: R19.7 Diarrhea, unspecified (principal)

== ENCOUNTER 2022-11-18 15:28 | Inpatient (IN) | payer MEDICARE, OTHER ==
[~2022-11-18] VITALS: Ht 154.9 cm; Wt 77.6 kg
[2022-11-18 15:39] VITALS: BP 142/78
[2022-11-18 16:10] LABS: BASO % 0.4 % (0.0-1.0); EOS % 0.6 % (1.0-4.0); HEMATOCRIT 43.8 % (37.0-47.0); LYMPH # 0.7 10*3/uL (1.3-4.4); LYMPH % 13.6 % (27.0-41.0); MEAN CELL VOLUME 96.5 fl (81.0-99.0); MEAN CORPUSCULAR HGB 32.2 pg (27.0-31.0); MEAN CORPUSCULAR HGB CONC 33.3 g/dl (33.0-37.0); MONO # 0.5 10*3/uL (0.1-1.0); MONO % 9.4 % (3.0-9.0); NEUT # 4.1 10*3/uL (2.3-7.9); NEUT % 75.3 % (47.0-73.0); PLATELET COUNT AUTOMATED 173 10*3/uL (130-400); RED BLOOD COUNT 4.54 10*6/uL (4.10-5.10); RED CELL DISTRI WIDTH 13.5 % (0-14.5); WHITE BLOOD COUNT 5.4 10*3/uL (4.8-10.8)
[2022-11-18 16:44] VITALS: BP 85/41
[2022-11-18 16:47] LABS: BILIRUBIN Negative (Negative); BLOOD Negative (Negative); CLARITY Clear (Clear); COLOR Yellow (Yellow); GLUCOSE Negative (Negative); KETONE Negative (Negative); LEUKO ESTERASE Negative (Negative); NITRITE Negative (Negative); PH 5.5 (4.5-8.0); UROBILINOGEN 0.2 E.U./dl (0.0-1.0)
[2022-11-18 17:01] LABS: POTASSIUM 4.3 mmol/L (3.4-5.1); TOTAL PROTEIN 7.4 gm/dL (6.0-8.0)
[2022-11-18 17:18] LABS: WBC 0-2 wbc/hpf (0-5)
[2022-11-18 17:40] VITALS: BP 80/47
[2022-11-18] MEDS ORDERED: CERTAVITE-ANTI1 EACH PO (18:42)
[2022-11-18] MEDS ORDERED: IRBESARTAN75 M1 PO (18:43)
[2022-11-18] MEDS ORDERED: LEVOFLOXACIN500 MG PO (18:50)
[2022-11-18] MEDS ORDERED: ALDACTONE25 M1 PO (18:52)
[2022-11-18 18:56] VITALS: BP 100/46
[2022-11-18 20:27] VITALS: BP 105/57
[2022-11-18 20:53] VITALS: BP 107/44
[2022-11-19 06:16] LABS: BASO % 0.5 % (0.0-1.0); HEMATOCRIT 40.4 % (37.0-47.0); LYMPH % 27.4 % (27.0-41.0); MEAN CORPUSCULAR HGB 32.1 pg (27.0-31.0); MEAN CORPUSCULAR HGB CONC 32.2 g/dl (33.0-37.0); MEAN PLATELET VOLUME 10.7 fl (9.6-12.3); MONO # 0.4 10*3/uL (0.1-1.0); NEUT # 2.3 10*3/uL (2.3-7.9); NEUT % 61.3 % (47.0-73.0); RED BLOOD COUNT 4.05 10*6/uL (4.10-5.10); RED CELL DISTRI WIDTH 13.8 % (0-14.5); WHITE BLOOD COUNT 3.7 10*3/uL (4.8-10.8)
[2022-11-19 06:18] LABS: MEAN CELL VOLUME 99.8 fl (81.0-99.0); PLATELET COUNT AUTOMATED 125 10*3/uL (130-400)
[2022-11-19 06:23] LABS: ACT PARTIAL THROMBO TIME 39.4 SECONDS (20.0-32.1); INTERNATIONAL NORM RATIO 1.3 (2.0-3.5)
[2022-11-19 06:37] LABS: ALKALINE PHOSPHATASE 133 U/L (46-116); BUN 21 mg/dl (9-23); CHLORIDE 105 mmol/L (98-107); CHOLESTEROL 108 mg/dL (<200); FREE T4 0.88 ng/dl (0.89-1.76); LDL CHOLESTEROL 69 mg/dL (9-159); SGPT/ALT 19 U/L (10-49); THYROID STIM HORMONE (HS) 0.651 uIU/ml (0.550-4.780); TOTAL PROTEIN 6.6 gm/dL (6.0-8.0); TRIGLYCERIDES 73 mg/dl (<150)
[2022-11-19 07:35] LABS: VITAMIN D, 25-HYDROXY 68.3 ng/mL (30-100)
[2022-11-19 08:00] VITALS: BP 119/61
[2022-11-19 12:00] VITALS: BP 118/52
[2022-11-19 16:00] VITALS: BP 117/57
[2022-11-19 20:00] VITALS: BP 120/65
[2022-11-20] VITALS: BP 105/60
[2022-11-20 05:34] LABS: BUN 20 mg/dl (9-23); CHLORIDE 109 mmol/L (98-107); POTASSIUM 3.6 mmol/L (3.4-5.1)
[2022-11-20 06:13] LABS: BASO % 0.8 % (0.0-1.0); EOS % 0.4 % (1.0-4.0); HEMATOCRIT 38.3 % (37.0-47.0); LYMPH % 36.7 % (27.0-41.0); MEAN CELL VOLUME 102.7 fl (81.0-99.0); MEAN CORPUSCULAR HGB 32.7 pg (27.0-31.0); MEAN CORPUSCULAR HGB CONC 31.9 g/dl (33.0-37.0); MEAN PLATELET VOLUME 11.2 fl (9.6-12.3); MONO # 0.4 10*3/uL (0.1-1.0); MONO % 13.9 % (3.0-9.0); NEUT # 1.2 10*3/uL (2.3-7.9); NEUT % 47.4 % (47.0-73.0); PLATELET COUNT AUTOMATED 94 10*3/uL (130-400); RED BLOOD COUNT 3.73 10*6/uL (4.10-5.10); RED CELL DISTRI WIDTH 13.8 % (0-14.5); WHITE BLOOD COUNT 2.6 10*3/uL (4.8-10.8)
[2022-11-20 08:00] VITALS: BP 107/62
[2022-11-20 12:00] VITALS: BP 110/59
[2022-11-20 16:00] VITALS: BP 115/62; BP 132/66
[2022-11-20 20:00] VITALS: BP 133/64
[2022-11-21] VITALS: BP 128/76
[2022-11-21 06:17] LABS: HEMATOCRIT 39.3 % (37.0-47.0); MEAN CORPUSCULAR HGB 31.7 pg (27.0-31.0); MEAN CORPUSCULAR HGB CONC 32.8 g/dl (33.0-37.0); MEAN PLATELET VOLUME 10.5 fl (9.6-12.3); PLATELET COUNT AUTOMATED 98 10*3/uL (130-400); RED BLOOD COUNT 4.07 10*6/uL (4.10-5.10); RED CELL DISTRI WIDTH 13.5 % (0-14.5); WHITE BLOOD COUNT 2.8 10*3/uL (4.8-10.8)
[2022-11-21 06:20] LABS: ALKALINE PHOSPHATASE 100 U/L (46-116); BUN 14 mg/dl (9-23); CHLORIDE 112 mmol/L (98-107); POTASSIUM 3.5 mmol/L (3.4-5.1); SGPT/ALT 34 U/L (10-49); TOTAL PROTEIN 5.8 gm/dL (6.0-8.0)
[2022-11-21 06:22] LABS: MANUAL DIFF REFLEX YES
[2022-11-21 06:29] LABS: MEAN CELL VOLUME 96.6 fl (81.0-99.0)
[2022-11-21 07:32] LABS: BASOPHILS 1 % (0-1); TOTAL CELLS COUNTED 100 #CELLS
[2022-11-21 07:33] LABS: PLATELET SUFFICIENCY LOW (NORMAL)
[2022-11-21 08:00] VITALS: BP 114/66
[2022-11-21 12:00] VITALS: BP 118/70
== END 2022-11-21 13:58 | disposition home health service (06) | DRG 871 ==
LOC: ED 15:28 → 4E 17:49 → EDHOLD 17:49 → 4E 19:55
PROVIDERS: Emergency Medicine; Student in an Organized Health Care Education/Training Program; ADMIT Internal Medicine; ATTEND Internal Medicine
DX: A41.9 Sepsis, unspecified organism (principal); N17.0 Acute kidney failure with tubular necrosis; U07.1 COVID-19; E87.1 Hypo-osmolality and hyponatremia; F05 Delirium due to known physiological condition; I50.32 Chronic diastolic (congestive) heart failure; R65.20 Severe sepsis without septic shock; R74.01 Elevation of levels of liver transaminase levels; Z90.710 Acquired absence of both cervix and uterus; Z82.49 Family history of ischemic heart disease and other diseases of the circulatory system; Z90.49 Acquired absence of other specified parts of digestive tract; Z82.3 Family history of stroke; Z91.041 Radiographic dye allergy status; Z88.8 Allergy status to other drugs, medicaments and biological substances; Z79.899 Other long term (current) drug therapy; Z79.1 Long term (current) use of non-steroidal anti-inflammatories (NSAID); Z79.2 Long term (current) use of antibiotics; I48.91 Unspecified atrial fibrillation; N18.30 Chronic kidney disease, stage 3 unspecified; I13.10 Hypertensive heart and chronic kidney disease without heart failure, with stage 1 through stage 4 chronic kidney disease, or unspecified chronic kidney disease

== ENCOUNTER 2023-06-22 14:28 | Emergency (ER) | payer MEDICARE, OTHER ==
[~2023-06-22] VITALS: Ht 154.9 cm; Wt 70.8 kg
[~2023-06-22 14:28] MED LIST changes: +ALDACTONE25 M1 PO; +CERTAVITE-ANTI1 EACH PO; +IRBESARTAN75 M1 PO; +LEVOFLOXACIN500 MG PO
[2023-06-22 14:41] VITALS: BP 109/61
[2023-06-22 17:19] LABS: BASO % 0.6 % (0.0-1.0); EOS # 0.2 10*3/uL (0.0-0.4); EOS % 3.1 % (1.0-4.0); HEMATOCRIT 38.3 % (37.0-47.0); LYMPH # 2.1 10*3/uL (1.3-4.4); LYMPH % 34.3 % (27.0-41.0); MEAN CORPUSCULAR HGB 34.7 pg (27.0-31.0); MEAN CORPUSCULAR HGB CONC 33.7 g/dl (33.0-37.0); MONO # 0.6 10*3/uL (0.1-1.0); MONO % 9.2 % (3.0-9.0); NEUT # 3.3 10*3/uL (2.3-7.9); NEUT % 52.3 % (47.0-73.0); PLATELET COUNT AUTOMATED 146 10*3/uL (130-400); RED BLOOD COUNT 3.72 10*6/uL (4.10-5.10); RED CELL DISTRI WIDTH 12.9 % (0-14.5); WHITE BLOOD COUNT 6.2 10*3/uL (4.8-10.8)
[2023-06-22 17:38] LABS: POTASSIUM 4.7 mmol/L (3.4-5.1); TOTAL PROTEIN 7.2 gm/dL (6.0-8.0)
== END 2023-06-22 19:31 | disposition home or self-care (01) ==
LOC: ED 14:28
PROVIDERS: Nurse Practitioner
DX: S80.12XA Contusion of left lower leg, initial encounter (principal); J45.909 Unspecified asthma, uncomplicated; M19.90 Unspecified osteoarthritis, unspecified site; I50.9 Heart failure, unspecified; F41.9 Anxiety disorder, unspecified; K21.9 Gastro-esophageal reflux disease without esophagitis; Z91.041 Radiographic dye allergy status; Z88.8 Allergy status to other drugs, medicaments and biological substances; Z90.49 Acquired absence of other specified parts of digestive tract; Z90.710 Acquired absence of both cervix and uterus; Z98.890 Other specified postprocedural states; W22.8XXA Striking against or struck by other objects, initial encounter; Y93.89 Activity, other specified; Y92.89 Other specified places as the place of occurrence of the external cause; Y99.8 Other external cause status

== ENCOUNTER 2024-06-05 14:14 | Inpatient (IN) | payer MEDICARE, OTHER ==
[~2024-06-05] VITALS: Ht 154.9 cm; Wt 73.2 kg
[2024-06-05 14:37] VITALS: BP 104/57
[2024-06-05 16:12] LABS: BASO # 0.1 10*3/uL (0.0-0.1); EOS # 0.2 10*3/uL (0.0-0.4); HEMATOCRIT 40.5 % (37.0-47.0); LYMPH # 2.3 10*3/uL (1.3-4.4); LYMPH % 36.3 % (27.0-41.0); MEAN CELL VOLUME 101.5 fl (81.0-99.0); MEAN CORPUSCULAR HGB 32.8 pg (27.0-31.0); MEAN CORPUSCULAR HGB CONC 32.3 g/dl (33.0-37.0); MEAN PLATELET VOLUME 10.4 fl (9.6-12.3); MONO # 0.5 10*3/uL (0.1-1.0); MONO % 7.5 % (3.0-9.0); NEUT # 3.3 10*3/uL (2.3-7.9); NEUT % 51.9 % (47.0-73.0); PLATELET COUNT AUTOMATED 155 10*3/uL (130-400); RED BLOOD COUNT 3.99 10*6/uL (4.10-5.10); RED CELL DISTRI WIDTH 13.3 % (0-14.5); WHITE BLOOD COUNT 6.3 10*3/uL (4.8-10.8)
[2024-06-05 16:32] LABS: BILIRUBIN Negative (Negative); BLOOD Trace-Intact (Negative); CLARITY Clear (Clear); COLOR Yellow (Yellow); GLUCOSE Negative (Negative); KETONE Negative (Negative); LEUKO ESTERASE 2+ (Negative); NITRITE Negative (Negative); SPECIFIC GRAVITY 1.015 (1.001-1.030); UROBILINOGEN 0.2 E.U./dl (0.0-1.0)
[2024-06-05 16:50] LABS: EPITHELIAL CELLS 0-2
[2024-06-05] MEDS ORDERED: Ceftriaxone Sodium 1 GM/10 ML SYR IV ONE (17:20)
[2024-06-05] MEDS ORDERED: SODIUM CHLORIDE 0.9% 1,000 ML IV ONE (17:20)
[2024-06-05] MEDS ORDERED: Ondansetron Hydrochloride 4 MG/2 ML VIAL IV PRN (17:45)
[2024-06-05] MEDS ORDERED: ACETAMINOPHEN 325 MG TAB PO PRN (17:45)
[2024-06-05] MEDS ORDERED: Magnesium Hydroxide 30 ML UDC PO PRN (17:45)
[2024-06-05] MEDS ORDERED: ACETAMINOPHEN 650 MG SUPP R PRN (17:45)
[2024-06-05] MEDS ORDERED: BISACODYL 5 MG TAB PO PRN (17:45)
[2024-06-05] MEDS ORDERED: BISACODYL 10 MG SUPP R PRN (17:45)
[2024-06-05 20:00] VITALS: BP 95/54
[2024-06-05] MEDS ORDERED: APIXABAN 5 MG TAB PO SCH (22:00)
[2024-06-05] MEDS ORDERED: LEVOFLOXACIN 150 ML IV SCH (22:00)
[2024-06-05] MEDS ORDERED: hydrOXYzine pamoate 25 MG CAP PO ONE (22:45)
[2024-06-06 00:46] VITALS: BP 95/54
[2024-06-06 04:31] LABS: BASO # 0.1 10*3/uL (0.0-0.1); BASO % 1.1 % (0.0-1.0); EOS # 0.2 10*3/uL (0.0-0.4); LYMPH # 1.2 10*3/uL (1.3-4.4); MEAN CORPUSCULAR HGB 33.5 pg (27.0-31.0); MEAN CORPUSCULAR HGB CONC 32.2 g/dl (33.0-37.0); MEAN PLATELET VOLUME 10.7 fl (9.6-12.3); MONO # 0.4 10*3/uL (0.1-1.0); MONO % 9.6 % (3.0-9.0); NEUT # 2.6 10*3/uL (2.3-7.9); NEUT % 57.1 % (47.0-73.0); PLATELET COUNT AUTOMATED 128 10*3/uL (130-400); RED BLOOD COUNT 3.46 10*6/uL (4.10-5.10); RED CELL DISTRI WIDTH 13.7 % (0-14.5); WHITE BLOOD COUNT 4.6 10*3/uL (4.8-10.8)
[2024-06-06 04:57] LABS: ALKALINE PHOSPHATASE 65 U/L (46-116); BUN 41 mg/dl (9-23); CHLORIDE 109 mmol/L (98-107); CHOLESTEROL 100 mg/dL (<200); LDL CHOLESTEROL 54 mg/dL (9-159); POTASSIUM 4.2 mmol/L (3.4-5.1); SGPT/ALT < 7 U/L (5-49); TRIGLYCERIDES 99 mg/dl (<150)
[2024-06-06 08:00] VITALS: BP 107/72
[2024-06-06] MEDS ORDERED: SODIUM CHLORIDE 0.9% 1,000 ML IV ONE (09:40)
[2024-06-06] MEDS ORDERED: Metoprolol Tartrate 25 MG TAB PO SCH (10:00)
[2024-06-06] MEDS ORDERED: NYSTATIN 15 GM BOT T SCH (10:00)
[2024-06-06] MEDS ORDERED: Lactobacillus Acidophilus/LA 1 TAB TAB PO SCH (10:00)
[2024-06-06] MEDS ORDERED: GEMFIBROZIL 600 MG TAB PO SCH (10:00)
[2024-06-06 12:00] VITALS: BP 100/61
[2024-06-06] MEDS ORDERED: DIGOXIN 125 MCG TAB PO SCH (14:00)
[2024-06-06 16:00] VITALS: BP 108/74
[2024-06-06 20:00] VITALS: BP 108/62
[2024-06-06] MEDS ORDERED: hydrOXYzine pamoate 25 MG CAP PO ONE (20:15)
[2024-06-07] VITALS: BP 100/54
[2024-06-07 05:36] LABS: CHLORIDE 112 mmol/L (98-107); POTASSIUM 4.2 mmol/L (3.4-5.1)
[2024-06-07 06:16] LABS: BASO % 0.9 % (0.0-1.0); EOS # 0.3 10*3/uL (0.0-0.4); EOS % 6.6 % (1.0-4.0); HEMATOCRIT 34.3 % (37.0-47.0); LYMPH # 1.7 10*3/uL (1.3-4.4); LYMPH % 39.6 % (27.0-41.0); MEAN CELL VOLUME 103.3 fl (81.0-99.0); MEAN CORPUSCULAR HGB 33.7 pg (27.0-31.0); MEAN CORPUSCULAR HGB CONC 32.7 g/dl (33.0-37.0); MONO # 0.5 10*3/uL (0.1-1.0); MONO % 10.9 % (3.0-9.0); NEUT # 1.8 10*3/uL (2.3-7.9); NEUT % 41.3 % (47.0-73.0); PLATELET COUNT AUTOMATED 114 10*3/uL (130-400); RED BLOOD COUNT 3.32 10*6/uL (4.10-5.10); RED CELL DISTRI WIDTH 13.8 % (0-14.5); WHITE BLOOD COUNT 4.4 10*3/uL (4.8-10.8)
[2024-06-07 06:20] LABS: BUN 28 mg/dl (9-23); DIGOXIN < 0.14 ng/ml (0.8-2.0)
[2024-06-07 08:00] VITALS: BP 98/62
[2024-06-07 12:00] VITALS: BP 114/79
[2024-06-07 16:00] VITALS: BP 112/78
[2024-06-07 20:00] VITALS: BP 96/46
[2024-06-07] MEDS ORDERED: Melatonin 5 MG TABLET PO PRN (20:35)
[2024-06-08] VITALS: BP 111/34
[2024-06-08 05:40] LABS: POTASSIUM 4.3 mmol/L (3.4-5.1)
[2024-06-08 06:16] LABS: BASO % 0.9 % (0.0-1.0); EOS # 0.3 10*3/uL (0.0-0.4); EOS % 5.5 % (1.0-4.0); LYMPH # 1.6 10*3/uL (1.3-4.4); LYMPH % 35.5 % (27.0-41.0); MEAN CORPUSCULAR HGB 32.9 pg (27.0-31.0); MEAN CORPUSCULAR HGB CONC 31.7 g/dl (33.0-37.0); MEAN PLATELET VOLUME 10.7 fl (9.6-12.3); MONO # 0.4 10*3/uL (0.1-1.0); MONO % 9.5 % (3.0-9.0); NEUT # 2.2 10*3/uL (2.3-7.9); NEUT % 48.4 % (47.0-73.0); PLATELET COUNT AUTOMATED 129 10*3/uL (130-400); RED BLOOD COUNT 3.46 10*6/uL (4.10-5.10); RED CELL DISTRI WIDTH 13.8 % (0-14.5); WHITE BLOOD COUNT 4.5 10*3/uL (4.8-10.8)
[2024-06-08 08:00] VITALS: BP 107/69
[2024-06-08 12:00] VITALS: BP 98/57
== END 2024-06-08 21:51 | disposition home or self-care (01) | DRG 689 ==
LOC: ED 14:14 → 4E 17:40 → EDHOLD 17:40 → 4E 20:48
PROVIDERS: Emergency Medicine; Student in an Organized Health Care Education/Training Program; ADMIT Internal Medicine; ATTEND Internal Medicine
DX: N30.01 Acute cystitis with hematuria (principal); N17.0 Acute kidney failure with tubular necrosis; E87.1 Hypo-osmolality and hyponatremia; E44.0 Moderate protein-calorie malnutrition; I13.0 Hypertensive heart and chronic kidney disease with heart failure and stage 1 through stage 4 chronic kidney disease, or unspecified chronic kidney disease; D61.818 Other pancytopenia; L97.818 Non-pressure chronic ulcer of other part of right lower leg with other specified severity; J45.909 Unspecified asthma, uncomplicated; F41.9 Anxiety disorder, unspecified; I50.9 Heart failure, unspecified; E83.52 Hypercalcemia; I48.91 Unspecified atrial fibrillation; N18.30 Chronic kidney disease, stage 3 unspecified; K57.30 Diverticulosis of large intestine without perforation or abscess without bleeding; K21.9 Gastro-esophageal reflux disease without esophagitis; E78.5 Hyperlipidemia, unspecified; D75.89 Other specified diseases of blood and blood-forming organs; Z88.6 Allergy status to analgesic agent; Z88.8 Allergy status to other drugs, medicaments and biological substances; Z91.09 Other allergy status, other than to drugs and biological substances; Z79.899 Other long term (current) drug therapy; Z79.01 Long term (current) use of anticoagulants; Z79.2 Long term (current) use of antibiotics; Z90.49 Acquired absence of other specified parts of digestive tract; Z90.710 Acquired absence of both cervix and uterus; Z68.30 Body mass index [BMI] 30.0-30.9, adult; Z82.49 Family history of ischemic heart disease and other diseases of the circulatory system; Z82.3 Family history of stroke; Z79.1 Long term (current) use of non-steroidal anti-inflammatories (NSAID); Z91.041 Radiographic dye allergy status

== ENCOUNTER 2024-06-18 10:15 | Inpatient (IN) | payer MEDICARE, OTHER ==
[~2024-06-18] VITALS: Ht 154.9 cm; Wt 78.9 kg
[2024-06-18 10:17] VITALS: BP 122/69
[2024-06-18 10:57] LABS: BASO % 0.9 % (0.0-1.0); EOS # 0.2 10*3/uL (0.0-0.4); EOS % 3.6 % (1.0-4.0); HEMATOCRIT 37.7 % (37.0-47.0); LYMPH # 1.1 10*3/uL (1.3-4.4); LYMPH % 25.3 % (27.0-41.0); MEAN CELL VOLUME 102.4 fl (81.0-99.0); MEAN CORPUSCULAR HGB 32.9 pg (27.0-31.0); MEAN CORPUSCULAR HGB CONC 32.1 g/dl (33.0-37.0); MEAN PLATELET VOLUME 11.1 fl (9.6-12.3); MONO # 0.5 10*3/uL (0.1-1.0); MONO % 11.1 % (3.0-9.0); NEUT # 2.6 10*3/uL (2.3-7.9); NEUT % 58.9 % (47.0-73.0); PLATELET COUNT AUTOMATED 166 10*3/uL (130-400); RED BLOOD COUNT 3.68 10*6/uL (4.10-5.10); WHITE BLOOD COUNT 4.4 10*3/uL (4.8-10.8)
[2024-06-18 11:00] VITALS: BP 122/69
[2024-06-18 11:10] LABS: POTASSIUM 3.7 mmol/L (3.4-5.1)
[2024-06-18 11:51] LABS: ACT PARTIAL THROMBO TIME 36.5 SECONDS (20.0-32.1)
[2024-06-18] MEDS ORDERED: CETIRIZINE HYDR10 MG PO (12:20)
[2024-06-18] MEDS ORDERED: BUMETANIDE 1 MG/4 ML VIAL IV ONE (12:45)
[2024-06-18] MEDS ORDERED: FUROSEMIDE 40 MG/4 ML VIAL IV ONE (12:45)
[2024-06-18 14:00] VITALS: BP 119/82
[2024-06-18] MEDS ORDERED: BISACODYL 5 MG TAB PO PRN (14:00)
[2024-06-18] MEDS ORDERED: Ondansetron Hydrochloride 4 MG/2 ML VIAL IV PRN (14:00)
[2024-06-18] MEDS ORDERED: GEMFIBROZIL 600 MG TAB PO SCH (18:00)
[2024-06-18] MEDS ORDERED: CALCIUM CARBONATE/VITAMIN D3 500 MG/200 IU TABLET PO SCH (18:00)
[2024-06-18 18:26] VITALS: BP 127/72
[2024-06-18 19:39] VITALS: BP 110/64
[2024-06-18] MEDS ORDERED: Metoprolol Tartrate 25 MG TAB PO SCH (22:00)
[2024-06-18] MEDS ORDERED: APIXABAN 5 MG TAB PO SCH (22:00)
[2024-06-19] VITALS: BP 106/69
[2024-06-19 05:10] LABS: POTASSIUM 3.8 mmol/L (3.4-5.1); TOTAL PROTEIN 7.3 gm/dL (6.0-8.0)
[2024-06-19 06:15] LABS: BASO # 0.1 10*3/uL (0.0-0.1); BASO % 1.1 % (0.0-1.0); EOS # 0.2 10*3/uL (0.0-0.4); EOS % 3.9 % (1.0-4.0); HEMATOCRIT 43.2 % (37.0-47.0); LYMPH # 2.3 10*3/uL (1.3-4.4); LYMPH % 40.2 % (27.0-41.0); MEAN CELL VOLUME 104.9 fl (81.0-99.0); MEAN CORPUSCULAR HGB CONC 31.5 g/dl (33.0-37.0); MEAN PLATELET VOLUME 11.1 fl (9.6-12.3); MONO # 0.6 10*3/uL (0.1-1.0); NEUT # 2.5 10*3/uL (2.3-7.9); NEUT % 44.6 % (47.0-73.0); PLATELET COUNT AUTOMATED 152 10*3/uL (130-400); RED BLOOD COUNT 4.12 10*6/uL (4.10-5.10); WHITE BLOOD COUNT 5.6 10*3/uL (4.8-10.8)
[2024-06-19 08:00] VITALS: BP 100/80
[2024-06-19] MEDS ORDERED: BUMETANIDE 1 MG/4 ML VIAL IV SCH (10:00)
[2024-06-19 12:00] VITALS: BP 121/74
[2024-06-19] MEDS ORDERED: EMPAGLIFLOZIN 10 MG TABLET PO SCH (14:10)
[2024-06-19 16:00] VITALS: BP 100/68
[2024-06-19 20:00] VITALS: BP 110/72
[2024-06-20] VITALS: BP 120/64
[2024-06-20 05:05] LABS: POTASSIUM 3.6 mmol/L (3.4-5.1)
[2024-06-20 06:12] LABS: BASO # 0.1 10*3/uL (0.0-0.1); BASO % 0.9 % (0.0-1.0); EOS # 0.2 10*3/uL (0.0-0.4); EOS % 4.5 % (1.0-4.0); HEMATOCRIT 38.8 % (37.0-47.0); LYMPH % 36.9 % (27.0-41.0); MEAN CELL VOLUME 102.4 fl (81.0-99.0); MEAN CORPUSCULAR HGB CONC 32.2 g/dl (33.0-37.0); MEAN PLATELET VOLUME 10.7 fl (9.6-12.3); MONO # 0.6 10*3/uL (0.1-1.0); MONO % 10.5 % (3.0-9.0); NEUT # 2.5 10*3/uL (2.3-7.9); NEUT % 46.8 % (47.0-73.0); PLATELET COUNT AUTOMATED 147 10*3/uL (130-400); RED BLOOD COUNT 3.79 10*6/uL (4.10-5.10); RED CELL DISTRI WIDTH 14.7 % (0-14.5); WHITE BLOOD COUNT 5.3 10*3/uL (4.8-10.8)
[2024-06-20 08:00] VITALS: BP 127/71
[2024-06-20 12:00] VITALS: BP 106/56
[2024-06-20] MEDS ORDERED: BUMETANIDE0.5 MG PO (14:21)
[2024-06-20] MEDS ORDERED: JARDIANCE10 MG PO (14:21)
[2024-06-20] MEDS ORDERED: ALDACTONE25 MG PO (14:21)
[2024-06-20 16:00] VITALS: BP 107/52
[2024-06-21] MEDS ORDERED: BUMETANIDE 1 MG TAB PO SCH (10:00)
[2024-06-21] MEDS ORDERED: SPIRONOLACTONE 25 MG TAB PO SCH (10:00)
== END 2024-06-20 17:24 | disposition home or self-care (01) | DRG 291 ==
LOC: ED 10:15 → EDHOLD 12:57 → 4E 12:57 → EDHOLD 12:58 → 4E 15:31
PROVIDERS: Internal Medicine; Student in an Organized Health Care Education/Training Program; ADMIT Internal Medicine; ATTEND Internal Medicine
DX: I13.0 Hypertensive heart and chronic kidney disease with heart failure and stage 1 through stage 4 chronic kidney disease, or unspecified chronic kidney disease (principal); I50.33 Acute on chronic diastolic (congestive) heart failure; N17.0 Acute kidney failure with tubular necrosis; I48.21 Permanent atrial fibrillation; N18.32 Chronic kidney disease, stage 3b; L97.519 Non-pressure chronic ulcer of other part of right foot with unspecified severity; L60.3 Nail dystrophy; I48.0 Paroxysmal atrial fibrillation; E87.8 Other disorders of electrolyte and fluid balance, not elsewhere classified; I27.20 Pulmonary hypertension, unspecified; F41.9 Anxiety disorder, unspecified; I08.3 Combined rheumatic disorders of mitral, aortic and tricuspid valves; E66.09 Other obesity due to excess calories; E78.5 Hyperlipidemia, unspecified; Z90.49 Acquired absence of other specified parts of digestive tract; Z90.710 Acquired absence of both cervix and uterus; Z82.49 Family history of ischemic heart disease and other diseases of the circulatory system; Z82.3 Family history of stroke; Z91.041 Radiographic dye allergy status; Z88.8 Allergy status to other drugs, medicaments and biological substances; Z79.899 Other long term (current) drug therapy; Z68.30 Body mass index [BMI] 30.0-30.9, adult

== ENCOUNTER 2024-09-28 20:35 | Emergency (ER) | payer MEDICARE, OTHER ==
[~2024-09-28] VITALS: Ht 154.9 cm; Wt 71.2 kg
[~2024-09-28 20:35] MED LIST changes: +ALDACTONE25 MG PO; +BUMETANIDE0.5 MG PO; +CETIRIZINE HYDR10 MG PO; +JARDIANCE10 MG PO
[2024-09-28 20:41] VITALS: BP 126/71
[2024-09-28 21:11] LABS: BASO % 0.5 % (0.0-1.0); EOS # 0.1 10*3/uL (0.0-0.4); EOS % 1.8 % (1.0-4.0); HEMATOCRIT 39.9 % (37.0-47.0); MEAN CELL VOLUME 96.6 fl (81.0-99.0); MEAN CORPUSCULAR HGB 32.4 pg (27.0-31.0); MEAN CORPUSCULAR HGB CONC 33.6 g/dl (33.0-37.0); MEAN PLATELET VOLUME 9.9 fl (9.6-12.3); MONO # 0.6 10*3/uL (0.1-1.0); MONO % 8.5 % (3.0-9.0); NEUT # 5.2 10*3/uL (2.3-7.9); NEUT % 68.8 % (47.0-73.0); PLATELET COUNT AUTOMATED 193 10*3/uL (130-400); RED BLOOD COUNT 4.13 10*6/uL (4.10-5.10); RED CELL DISTRI WIDTH 13.8 % (0-14.5); WHITE BLOOD COUNT 7.6 10*3/uL (4.8-10.8)
[2024-09-28 21:30] LABS: POTASSIUM 3.6 mmol/L (3.4-5.1)
[2024-09-28 22:40] LABS: BILIRUBIN Negative (Negative); BLOOD 3+ (Negative); CLARITY Clear (Clear); COLOR Yellow (Yellow); GLUCOSE Negative (Negative); KETONE Negative (Negative); LEUKO ESTERASE 2+ (Negative); NITRITE Negative (Negative); PH 5.5 (4.5-8.0); UROBILINOGEN 0.2 E.U./dl (0.0-1.0)
[2024-09-28 23:04] LABS: RBC 41-50 rbc/hpf (0-2)
[2024-09-28 23:05] LABS: BACTERIA 1+; WBC 16-20 wbc/hpf (0-5)
[2024-09-28] MEDS ORDERED: CIPRO500 MG PO (23:10)
[2024-09-28] MEDS ORDERED: MIRALAX POWDER17 G1 PO (23:10)
[2024-09-28] MEDS ORDERED: Ciprofloxacin Hydrochloride 500 MG TAB PO ONE (23:10)
== END 2024-09-28 23:16 | disposition home or self-care (01) ==
LOC: ED 20:35
PROVIDERS: Internal Medicine
DX: K59.00 Constipation, unspecified (principal); N39.0 Urinary tract infection, site not specified; J45.909 Unspecified asthma, uncomplicated; M19.90 Unspecified osteoarthritis, unspecified site; I50.9 Heart failure, unspecified; F41.9 Anxiety disorder, unspecified; K21.9 Gastro-esophageal reflux disease without esophagitis; I48.91 Unspecified atrial fibrillation; E87.5 Hyperkalemia; Z91.041 Radiographic dye allergy status; Z88.8 Allergy status to other drugs, medicaments and biological substances; Z90.49 Acquired absence of other specified parts of digestive tract; Z90.710 Acquired absence of both cervix and uterus; Z98.890 Other specified postprocedural states

== ENCOUNTER → 2024-10-16 | Outpatient (CLI) | payer MEDICARE, OTHER ==
[~2024-10-16] MED LIST changes: +CIPRO500 MG PO; +MIRALAX POWDER17 G1 PO
[2024-10-16 16:29] LABS: POTASSIUM 3.8 mmol/L (3.4-5.1); TOTAL PROTEIN 8.3 gm/dL (6.0-8.0)
== END | disposition home or self-care (01) ==
LOC: LAB 15:37
PROVIDERS: ATTEND Nurse Practitioner Primary Care
DX: N18.9 Chronic kidney disease, unspecified (principal); R23.3 Spontaneous ecchymoses

== ENCOUNTER 2025-02-22 17:12 | Emergency (ER) | payer MEDICARE, OTHER ==
[~2025-02-22] VITALS: Ht 154.9 cm; Wt 77.6 kg
[2025-02-22 17:16] VITALS: BP 127/81
[2025-02-22] MEDS ORDERED: SODIUM CHLORIDE 0.9% 1,000 ML IV ONE (17:55)
== END 2025-02-22 19:20 ==
LOC: ED 17:12
DX: N17.9 Acute kidney failure, unspecified (principal); I50.9 Heart failure, unspecified; J45.909 Unspecified asthma, uncomplicated; K21.9 Gastro-esophageal reflux disease without esophagitis; F32.A Depression, unspecified; Z79.899 Other long term (current) drug therapy; Z88.8 Allergy status to other drugs, medicaments and biological substances; Z91.041 Radiographic dye allergy status; Z90.49 Acquired absence of other specified parts of digestive tract; Z90.710 Acquired absence of both cervix and uterus; Z98.890 Other specified postprocedural states